=== PATIENT | female | born 1980 | race American Indian/Alaskan Native ===

== ENCOUNTER 2020-03-04 13:35 | Inpatient (IN) | payer MEDICAID ==
[2020-03-04] MEDS ORDERED: LACTATED RINGERS 500 ML IV ONE (14:17)
[2020-03-04 14:44] LABS: Bilirubin,Urine NEG (Negative); Blood,Urine NEG (Negative); Color,Urine Colorless (Yellow); Protein,Urine <15 mg/dL mg/dL (Negative); Urobilinogen,Urine < 2.0 mg/dL (<2.0)
[2020-03-04 14:54] LABS: Amphetamine Screen,Urine Negative; Benzodiazepines Screen,Urine Negative; Cannabinoid Screen,Urine Negative; Cocaine Screen,Urine Negative; Methadone Screen,Urine Negative; Opiate Screen,Urine Negative
[2020-03-04] MEDS ORDERED: MAGNESIUM SULFATE 4 GM/100 ML BAG IV ONE (14:59)
[2020-03-04 15:05] LABS: Hematocrit 38.5 % (30.3-42.9); Mean Corpuscular HGB Conc 34 % (30-34); Mean Corpuscular Volume 98 fl (79-97); Platelet Count 220 K/mm3 (140-440); Red Blood Count 3.94 M/mm3 (3.65-5.03); Red Cell Distribution Width 14.2 % (13.2-15.2)
--- NOTE | 2020-03-04 15:05 | History and Physical Report ---
History of Present Illness Date of examination: 03/04/20 Date of admission: 03/04/2020 Chief complaint: 39-year-old -0-2-5 at 25 and 5 by LMP with KEVIN 06/12/2020 presents for the following: Uncontrolled chronic hypertension in second trimester: Medication includes amlodipine 10 mg daily, labetalol 400 mg twice daily Chronic diastolic heart failure: Echo done in [place] [facility] January 10 within normal limits AMA Cigarette smoker Substance dependence And multiple HSV-2 History of UTI and right thigh boil Past History Past Medical History: heart disease, hypertension Past Surgical History: no surgical history - Obstetrical History Expected Date of Delivery: 06/12/20 Actual Gestation: 25 Week(s) 5 Day(s) : 8 Para: 5 Medications and Allergies Allergies Allergy/AdvReac Type Severity Reaction Status Date / Time No Known Allergies Allergy Unverified 03/04/20 14:17 Active Meds: Active Medications Betamethasone Acet/Betameth SodPhos (Celestone Soluspan) 12 mg IM Q24HR SANCHEZ Lactated Ringer's (Lactated Ringers) 1,000 mls @ 75 mls/hr IV DIRECT SANCHEZ Magnesium Sulfate (Magnesium Sulfate 40gm/1000ml) 40 gm in 1,000 mls @ 50 mls/hr IV DIRECT SANCHEZ Magnesium Sulfate (Magnesium Sulfate 4gm/100ml) 4 gm in 100 mls @ 300 mls/hr IV ONCE ONE Stop: 03/04/20 15:18 Labetalol HCl (Labetalol) 20 mg IV ONCE ONE Stop: 03/04/20 15:00 Review of Systems All systems: negative (no complaints) - Vital Signs Vital signs: Vital Signs Pulse BP 70 165/88 03/04/20 14:26 03/04/20 14:26 Temp Pulse Resp BP Pulse Ox 98.4 F 83 16 175/77 03/04/20 14:27 03/04/20 14:59 03/04/20 14:27 03/04/20 14:59 - Physical Exam Breasts: Positive: deferred Cardiovascular: Regular rate Lungs: Positive: Clear to auscultation Abdomen: Positive: normal appearance Extremities: Positive: normal Deep Tendon Reflex Grade: Normal +2 - Obstetrical FHR: category 1 Results All other labs normal. Assessment and Plan Severe uncontrolled chronic hypertension in the second trimester with history of chronic heart failure Plan Labetalol 20 mg IV x1 dose stat Admission [facility] consult Cardiology consult Magnesium sulfate Steroid PIH labs 24-hour urine protein Drug abuse profile OB ultrasound Patient will be placed on hold at home p.o. chronic hypertension medication Will follow ACOG algorithms and guidelines regarding malignant hypertension in stable at bedside Riccardo Costa MD
[2020-03-04 15:23] LABS: Alanine Aminotransferase 12 units/L (7-56); Uric Acid 4.8 mg/dL (3.5-7.6)
[2020-03-04] MEDS: LACTATED RINGERS 1,000 ML IV SCH (16:15)
[2020-03-04] MEDS: BETAMET ACET/BETAMET NA PH 6 MG/ML INJ 5 ML MDV IM SCH (16:16)
[2020-03-04] MEDS: MAGNESIUM SULFATE 40GM/1000ML 40 GM/1,000 ML BAG IV SCH (16:45)
[2020-03-04] MEDS ORDERED: ZOLPIDEM 5 MG TAB PO PRN (23:27)
[2020-03-04] MEDS: ACETAMINOPHEN 325 MG TAB PO PRN (23:53)
[2020-03-05] MEDS: LACTATED RINGERS 1,000 ML IV SCH ×2 (05:40→16:17)
[2020-03-05] MEDS: amLODIPine 10 MG TAB PO SCH (09:11)
--- NOTE | 2020-03-05 12:09 | Progress Note ---
Assessment and Plan A: at 25 weeks, 6 days gestation. Chronic hypertension, possible preE. Chronic diastolic heart failure. AMA. Cigarette smoker. P: Patient to be seen by perinatology and cardiology. Continue BP monitoring and meds. OB US (has been ordered). Continue 24 hour urine collection. Consulted with re: this patient. Orders per MD. Subjective - Subjective Date of service: 03/05/20 Principal diagnosis: at 25 6/7 weeks, chronic hypertension Interval history: Doing well. Has been resting and BPs are much better. Was sent here from the OB office and admitted yesterday due to uncontrolled chronic hypertension in the second trimester. Patient also has chronic diastolic heart failure. Patient denies headache, visual disturbance, nausea or vomiting, abdominal or epigastric pain, or swelling. Patient reports active movement. She denies leaking of fluid or vaginal bleeding. Awaiting visit from cardiology and perinatology (consults were ordered by Dr. Costa). Objective - Vital Signs Vital Signs: Vital Signs - 12hr 03/05/20 03/05/20 03/05/20 00:08 00:13 00:18 Temperature Pulse Rate 69 68 69 Respiratory Rate Blood Pressure Blood Pressure [Left] O2 Sat by Pulse 99 98 99 Oximetry 03/05/20 03/05/20 03/05/20 00:20 00:23 00:28 Temperature Pulse Rate 68 70 Respiratory 18 Rate Blood Pressure Blood Pressure [Left] O2 Sat by Pulse 99 98 98 Oximetry 03/05/20 03/05/20 03/05/20 00:33 00:36 00:38 Temperature Pulse Rate 69 68 72 Respiratory Rate Blood Pressure 133/70 Blood Pressure [Left] O2 Sat by Pulse 98 99 Oximetry 03/05/20 03/05/20 03/05/20 00:43 00:48 00:53 Temperature Pulse Rate 79 71 75 Respiratory Rate Blood Pressure Blood Pressure [Left] O2 Sat by Pulse 100 97 100 Oximetry 03/05/20 03/05/20 03/05/20 00:58 01:00 01:03 Temperature 98.8 F Pulse Rate 79 72 Respiratory Rate Blood Pressure Blood Pressure [Left] O2 Sat by Pulse 99 100 Oximetry 03/05/20 03/05/20 03/05/20 01:07 01:08 01:13 Temperature Pulse Rate 74 75 74 Respiratory Rate Blood Pressure 165/84 Blood Pressure [Left] O2 Sat by Pulse 100 100 Oximetry 03/05/20 03/05/20 03/05/20 01:18 01:23 01:28 Temperature Pulse Rate 76 75 69 Respiratory Rate Blood Pressure Blood Pressure [Left] O2 Sat by Pulse 100 100 100 Oximetry 03/05/20 03/05/20 03/05/20 01:30 01:33 01:36 Temperature Pulse Rate 68 68 Respiratory 20 Rate Blood Pressure 141/70 Blood Pressure [Left] O2 Sat by Pulse 99 100 Oximetry 03/05/20 03/05/20 03/05/20 01:38 01:43 01:48 Temperature Pulse Rate 69 72 73 Respiratory Rate Blood Pressure Blood Pressure [Left] O2 Sat by Pulse 100 100 99 Oximetry 03/05/20 03/05/20 03/05/20 01:53 01:58 02:03 Temperature Pulse Rate 70 72 69 Respiratory Rate Blood Pressure Blood Pressure [Left] O2 Sat by Pulse 98 99 100 Oximetry 03/05/20 03/05/20 03/05/20 02:08 02:13 02:18 Temperature Pulse Rate 67 68 71 Respiratory Rate Blood Pressure 128/68 Blood Pressure [Left] O2 Sat by Pulse 100 99 99 Oximetry 03/05/20 03/05/20 03/05/20 02:20 02:23 02:28 Temperature Pulse Rate 70 74 Respiratory 18 Rate Blood Pressure Blood Pressure [Left] O2 Sat by Pulse 100 98 100 Oximetry 03/05/20 03/05/20 03/05/20 02:33 02:36 02:38 Temperature Pulse Rate 76 72 72 Respiratory Rate Blood Pressure 112/54 Blood Pressure [Left] O2 Sat by Pulse 98 98 Oximetry 03/05/20 03/05/20 03/05/20 02:43 02:48 02:53 Temperature Pulse Rate 75 75 73 Respiratory Rate Blood Pressure Blood Pressure [Left] O2 Sat by Pulse 98 97 97 Oximetry 03/05/20 03/05/20 03/05/20 02:58 03:03 03:06 Temperature Pulse Rate 75 74 81 Respiratory Rate Blood Pressure 112/56 Blood Pressure [Left] O2 Sat by Pulse 97 97 Oximetry 03/05/20 03/05/20 03/05/20 03:08 03:13 03:18 Temperature Pulse Rate 75 77 78 Respiratory Rate Blood Pressure Blood Pressure [Left] O2 Sat by Pulse 97 97 97 Oximetry 03/05/20 03/05/20 03/05/20 03:23 03:28 03:33 Temperature Pulse Rate 78 77 77 Respiratory Rate Blood Pressure Blood Pressure [Left] O2 Sat by Pulse 97 97 97 Oximetry 03/05/20 03/05/20 03/05/20 03:35 03:36 03:38 Temperature Pulse Rate 75 77 Respiratory 18 Rate Blood Pressure 103/57 Blood Pressure [Left] O2 Sat by Pulse 99 97 Oximetry 03/05/20 03/05/20 03/05/20 03:43 03:48 03:53 Temperature Pulse Rate 75 75 76 Respiratory Rate Blood Pressure Blood Pressure [Left] O2 Sat by Pulse 98 97 97 Oximetry 03/05/20 03/05/20 03/05/20 03:58 04:03 04:06 Temperature Pulse Rate 77 75 74 Respiratory Rate Blood Pressure 111/59 Blood Pressure [Left] O2 Sat by Pulse 97 98 Oximetry 03/05/20 03/05/20 03/05/20 04:08 04:13 04:18 Temperature Pulse Rate 75 75 76 Respiratory Rate Blood Pressure Blood Pressure [Left] O2 Sat by Pulse 98 98 99 Oximetry 03/05/20 03/05/20 03/05/20 04:23 04:28 04:33 Temperature Pulse Rate 74 75 74 Respiratory Rate Blood Pressure Blood Pressure [Left] O2 Sat by Pulse 99 98 97 Oximetry 03/05/20 03/05/20 03/05/20 04:36 04:38 04:40 Temperature 97.8 F Pulse Rate 73 74 Respiratory Rate Blood Pressure 112/55 Blood Pressure [Left] O2 Sat by Pulse 98 Oximetry 03/05/20 03/05/20 03/05/20 04:43 04:48 04:53 Temperature Pulse Rate 73 74 75 Respiratory 20 Rate Blood Pressure Blood Pressure [Left] O2 Sat by Pulse 99 98 98 Oximetry 03/05/20 03/05/20 03/05/20 04:58 05:03 05:06 Temperature Pulse Rate 75 74 71 Respiratory Rate Blood Pressure 120/58 Blood Pressure [Left] O2 Sat by Pulse 98 100 Oximetry 03/05/20 03/05/20 03/05/20 05:08 05:13 05:18 Temperature Pulse Rate 77 75 78 Respiratory Rate Blood Pressure Blood Pressure [Left] O2 Sat by Pulse 99 99 98 Oximetry 03/05/20 03/05/20 03/05/20 05:23 05:28 05:30 Temperature Pulse Rate 75 79 Respiratory 18 Rate Blood Pressure Blood Pressure [Left] O2 Sat by Pulse 98 98 97 Oximetry 03/05/20 03/05/20 03/05/20 05:33 05:36 05:38 Temperature Pulse Rate 75 72 74 Respiratory Rate Blood Pressure 111/60 Blood Pressure [Left] O2 Sat by Pulse 98 97 Oximetry 03/05/20 03/05/20 03/05/20 05:43 05:48 05:53 Temperature Pulse Rate 77 75 76 Respiratory Rate Blood Pressure Blood Pressure [Left] O2 Sat by Pulse 97 98 97 Oximetry 03/05/20 03/05/20 03/05/20 05:58 06:03 06:06 Temperature Pulse Rate 77 76 75 Respiratory Rate Blood Pressure 113/55 Blood Pressure [Left] O2 Sat by Pulse 98 98 Oximetry 03/05/20 03/05/20 03/05/20 06:08 06:13 06:18 Temperature Pulse Rate 73 74 74 Respiratory Rate Blood Pressure Blood Pressure [Left] O2 Sat by Pulse 98 97 98 Oximetry 03/05/20 03/05/20 03/05/20 06:23 06:26 06:28 Temperature Pulse Rate 77 79 Respiratory 18 Rate Blood Pressure Blood Pressure [Left] O2 Sat by Pulse 97 97 98 Oximetry 03/05/20 03/05/20 03/05/20 06:33 06:36 06:38 Temperature Pulse Rate 76 75 80 Respiratory Rate Blood Pressure 110/66 Blood Pressure [Left] O2 Sat by Pulse 99 98 Oximetry 03/05/20 03/05/20 03/05/20 06:43 06:48 06:53 Temperature Pulse Rate 74 77 72 Respiratory Rate Blood Pressure Blood Pressure [Left] O2 Sat by Pulse 98 98 100 Oximetry 03/05/20 03/05/20 03/05/20 06:58 07:03 07:06 Temperature Pulse Rate 70 73 69 Respiratory Rate Blood Pressure 117/67 Blood Pressure [Left] O2 Sat by Pulse 99 99 Oximetry 03/05/20 03/05/20 03/05/20 07:08 07:13 07:18 Temperature Pulse Rate 72 71 71 Respiratory Rate Blood Pressure Blood Pressure [Left] O2 Sat by Pulse 100 99 98 Oximetry 03/05/20 03/05/20 03/05/20 07:23 07:28 07:33 Temperature Pulse Rate 72 72 69 Respiratory Rate Blood Pressure Blood Pressure [Left] O2 Sat by Pulse 98 98 99 Oximetry 03/05/20 03/05/20 03/05/20 07:36 07:38 07:39 Temperature 97.9 F Pulse Rate 70 70 71 Respiratory 16 Rate Blood Pressure 107/62 Blood Pressure 107/62 [Left] O2 Sat by Pulse 100 100 Oximetry 03/05/20 03/05/20 03/05/20 07:43 07:48 07:53 Temperature Pulse Rate 74 72 71 Respiratory Rate Blood Pressure Blood Pressure [Left] O2 Sat by Pulse 100 100 100 Oximetry 03/05/20 03/05/20 03/05/20 07:58 08:03 08:08 Temperature Pulse Rate 79 78 75 Respiratory Rate Blood Pressure 138/77 Blood Pressure [Left] O2 Sat by Pulse 99 99 100 Oximetry 03/05/20 03/05/20 03/05/20 08:13 08:17 08:18 Temperature Pulse Rate 82 78 78 Respiratory Rate Blood Pressure 142/75 Blood Pressure [Left] O2 Sat by Pulse 100 100 Oximetry 03/05/20 03/05/20 03/05/20 08:23 08:28 08:33 Temperature Pulse Rate 79 81 81 Respiratory Rate Blood Pressure Blood Pressure [Left] O2 Sat by Pulse 100 100 99 Oximetry 03/05/20 03/05/20 03/05/20 08:38 08:43 08:48 Temperature Pulse Rate 77 87 79 Respiratory Rate Blood Pressure Blood Pressure [Left] O2 Sat by Pulse 100 100 100 Oximetry 03/05/20 03/05/20 03/05/20 08:53 08:57 08:58 Temperature Pulse Rate 82 80 85 Respiratory Rate Blood Pressure 134/76 Blood Pressure [Left] O2 Sat by Pulse 100 100 Oximetry 03/05/20 03/05/20 03/05/20 09:03 09:08 09:11 Temperature Pulse Rate 81 81 78 Respiratory Rate Blood Pressure 134/76 Blood Pressure [Left] O2 Sat by Pulse 100 100 Oximetry 03/05/20 03/05/20 03/05/20 09:13 09:17 09:18 Temperature Pulse Rate 80 81 83 Respiratory Rate Blood Pressure 142/63 Blood Pressure [Left] O2 Sat by Pulse 100 100 Oximetry 03/05/20 03/05/20 03/05/20 09:23 09:28 09:34 Temperature Pulse Rate 78 80 80 Respiratory Rate Blood Pressure Blood Pressure [Left] O2 Sat by Pulse 100 100 100 Oximetry 03/05/20 03/05/20 03/05/20 09:38 09:44 09:49 Temperature Pulse Rate 78 78 80 Respiratory Rate Blood Pressure Blood Pressure [Left] O2 Sat by Pulse 100 99 100 Oximetry 03/05/20 03/05/20 03/05/20 09:54 09:59 10:03 Temperature Pulse Rate 77 77 77 Respiratory Rate Blood Pressure Blood Pressure [Left] O2 Sat by Pulse 99 99 99 Oximetry 03/05/20 03/05/20 03/05/20 10:08 10:14 10:19 Temperature Pulse Rate 78 80 76 Respiratory Rate Blood Pressure Blood Pressure [Left] O2 Sat by Pulse 98 99 100 Oximetry 03/05/20 03/05/20 03/05/20 10:21 10:24 10:29 Temperature Pulse Rate 75 76 77 Respiratory Rate Blood Pressure 143/81 Blood Pressure [Left] O2 Sat by Pulse 100 100 Oximetry 03/05/20 03/05/20 03/05/20 10:33 10:39 10:43 Temperature Pulse Rate 78 78 77 Respiratory Rate Blood Pressure Blood Pressure [Left] O2 Sat by Pulse 100 100 100 Oximetry 03/05/20 03/05/20 03/05/20 10:49 10:53 10:59 Temperature Pulse Rate 75 76 75 Respiratory Rate Blood Pressure Blood Pressure [Left] O2 Sat by Pulse 100 100 100 Oximetry 03/05/20 03/05/20 03/05/20 11:01 11:04 11:08 Temperature Pulse Rate 75 76 79 Respiratory Rate Blood Pressure 141/74 Blood Pressure [Left] O2 Sat by Pulse 100 100 Oximetry 03/05/20 03/05/20 03/05/20 11:11 11:13 11:18 Temperature 98.2 F Pulse Rate 74 73 75 Respiratory 18 Rate Blood Pressure Blood Pressure [Left] O2 Sat by Pulse 100 100 100 Oximetry 03/05/20 03/05/20 03/05/20 11:23 11:29 11:34 Temperature Pulse Rate 81 77 81 Respiratory Rate Blood Pressure Blood Pressure [Left] O2 Sat by Pulse 99 98 100 Oximetry 03/05/20 03/05/20 03/05/20 11:38 11:43 11:48 Temperature Pulse Rate 74 74 77 Respiratory Rate Blood Pressure Blood Pressure [Left] O2 Sat by Pulse 100 99 99 Oximetry 03/05/20 03/05/20 03/05/20 11:54 11:56 11:59 Temperature Pulse Rate 75 72 71 Respiratory Rate Blood Pressure 125/70 Blood Pressure [Left] O2 Sat by Pulse 100 100 Oximetry 03/05/20 12:04 Temperature Pulse Rate 76 Respiratory Rate Blood Pressure Blood Pressure [Left] O2 Sat by Pulse 100 Oximetry - Exam Cardiovascular: Regular rate, Other (murmur heard) Lungs: Clear to auscultation Abdomen: Present: normal appearance, soft. Absent: distention, tenderness, guarding, rigidity Uterus: Present: normal, fundal height above umbilicus. Absent: tenderness FHR: other (AGA) Uterine Contraction Pattern: Absent Extremities: normal - Labs Labs: Abnormal Labs 03/04/20 03/04/20 03/05/20 13:54 13:54 08:35 MCV 98 H MCH 33 H Creatinine 0.5 L Magnesium 6.20 H Laboratory Results - last 24 hr 03/04/20 03/04/20 03/04/20 13:54 13:54 14:15 WBC 9.0 RBC 3.94 Hgb 13.0 Hct 38.5 MCV 98 H MCH 33 H MCHC 34 RDW 14.2 Plt Count 220 Creatinine 0.5 L Estimated GFR > 60 Uric Acid 4.8 Magnesium AST 32 ALT 12 Urine Color Colorless Urine Turbidity Clear Urine pH 7.0 Ur Specific [place] 1.004 Urine Protein <15 mg/dl Urine Glucose (UA) Neg Urine Ketones Neg Urine Blood Neg Urine Nitrite Neg Urine Bilirubin Neg Urine Urobilinogen < 2.0 Ur Leukocyte Esterase Neg Urine WBC (Auto) 2.0 Urine RBC (Auto) 1.0 U Epithel Cells (Auto) < 1.0 Urine Opiates Screen Urine Methadone Screen Ur Barbiturates Screen Ur Phencyclidine Scrn Ur Amphetamines Screen U Benzodiazepines Scrn Urine Cocaine Screen U Marijuana (THC) Screen Drugs of Abuse Note Blood Type Antibody Screen 03/04/20 03/04/20 03/05/20 14:15 14:15 08:35 WBC RBC Hgb Hct MCV MCH MCHC RDW Plt Count Creatinine Estimated GFR Uric Acid Magnesium 6.20 H AST ALT Urine Color Urine Turbidity Urine pH Ur Specific [place] Urine Protein Urine Glucose (UA) Urine Ketones Urine Blood Urine Nitrite Urine Bilirubin Urine Urobilinogen Ur Leukocyte Esterase Urine WBC (Auto) Urine RBC (Auto) U Epithel Cells (Auto) Urine Opiates Screen Negative Urine Methadone Screen Negative Ur Barbiturates Screen Negative Ur Phencyclidine Scrn Negative Ur Amphetamines Screen Negative U Benzodiazepines Scrn Negative Urine Cocaine Screen Negative U Marijuana (THC) Screen Negative Drugs of Abuse Note Disclamer Blood Type O POSITIVE Antibody Screen Negative
[2020-03-05] MEDS: PRENATAL VIT27-FE FUMARATE-FOLIC ACID VIT TAB PO SCH (13:52)
[2020-03-05] MEDS: MAGNESIUM SULFATE 40GM/1000ML 40 GM/1,000 ML BAG IV SCH (13:52)
[2020-03-05] MEDS: BETAMET ACET/BETAMET NA PH 6 MG/ML INJ 5 ML MDV IM SCH (16:08)
--- NOTE | 2020-03-05 17:57 | Event Note ---
Date: 03/05/20 [facility] and cardiology consult ordered yesterday; pt. states neither has seen her yet. Called [facility] and cardiology and made sure they were aware of these consults.
--- NOTE | 2020-03-05 19:57 | Ultrasound Report ---
US OB limited, US OB BPP wo non-stress INDICATION: MICHELLE. TECHNIQUE: Transabdominal. Color Doppler was performed. COMPARISON: None available. FINDINGS: There is a single intrauterine . Heart Rate: 129 beats per minute. Position: cephalic. Amniotic Fluid Volume: normal Amniotic Fluid Index (MICHELLE) in cm (if calculated): 9.9. Biophysical Profile: breathing movements: 2 movements:2 posture and tone:2 Qualitative amniotic fluid volume: 2 IMPRESSION: 1. Amniotic fluid is normal. 2. Biophysical profile is 8 of 8 Signer Name: Rod Norris MD Signed: 03/05/2020 7:53 PM Workstation Name: [id number]
--- NOTE | 2020-03-05 20:14 | Event Note ---
Date: 03/05/[address] Padilla from [facility] re: consult that had been put in by Dr. Cosat yesterday. Dr. Padilla reviewed patient's chart on [facility]. Dr. Padilla states that patient has chronic hypertension with superimposed preeclampsia with severe features. He recommends to stop magnesium sulfate, make sure she has completed her course of steroids, keep her in-house, continue her BP medications, and that [facility] will see her either tomorrow or Saturday. Informed Dr. Monreal of all of the above. Also called [facility] and reminded them of cardiology consult that had been put in by Dr. Costa. 24 hour urine protein now resulted: 444 mg protein. US done this PM: BPP 8/8 and MICHELLE 9.9 cm. Nurse states patient received her second dose of steroids this afternoon.
[2020-03-06] MEDS: ACETAMINOPHEN 325 MG TAB PO PRN (03:05)
--- NOTE | 2020-03-06 08:46 | Consultation ---
History of Present Illness Consult date: 03/06/20 History of present illness: Ms. López is a 39y/o 26+0 weeks GA who is admitted with chronic hypertension and now a 24hour urine 444mg. The patient was admitted with new onset severe range blood pressures from her OBGYN's office with blood pressures in 210s/100s. She has been provided with IV anti-hypertensives while in the hospital in re-initiated on her oral medications of labetalol 400mg BID and Amlodipine 10mg daily. Currently, she denies headaches, visual changes and ruq pain. She denies headaches, visual changes and ruq pain. Of note, on review of the available records, the patient has a history of chronic diastolic heart failure with a recent TTE performed in 12/2019. But there is no record of the report available to [facility] at this time. The patient has already received betamethasone for lung maturity and magnesium sulfate for neuroprotection. Past History Past Medical History: heart disease, hypertension Past Surgical History: no surgical history - Obstetrical History : 8 Medications and Allergies Allergies Allergy/AdvReac Type Severity Reaction Status Date / Time latex Allergy Itching Verified 03/04/20 15:17 sulfur [From Sulfur-8] Allergy Itching Verified 03/04/20 15:17 Home Medications Medication Instructions Recorded Confirmed Last Taken Type Vitamin 1 tab PO DAILY 03/05/20 03/05/20 03/03/20 History amLODIPine 10 mg PO DAILY 03/05/20 03/05/20 03/04/20 History labetaloL 400 mg PO BID 03/05/20 03/05/20 03/03/20 History Active Meds: Active Medications Acetaminophen (Tylenol) 650 mg PO Q6H PRN PRN Reason: Pain, Mild (1-3) Last Admin: 03/06/20 03:05 Dose: 650 mg Documented by: Amlodipine Besylate (Amlodipine) 10 mg PO QDAY [facility] Last Admin: 03/05/20 09:11 Dose: 10 mg Documented by: Lactated Ringer's (Lactated Ringers) 1,000 mls @ 75 mls/hr IV DIRECT [facility] Last Admin: 03/05/20 16:17 Dose: 75 mls/hr Documented by: Labetalol HCl (Labetalol) 400 mg PO BID [facility] Last Admin: 03/05/20 21:38 Dose: 400 mg Documented by: Multivitamins/Iron/Calcium ( Vitamin) 1 each PO QDAY [facility] Last Admin: 03/05/20 13:52 Dose: 1 each Documented by: Zolpidem Tartrate (Ambien) 5 mg PO QHS PRN PRN Reason: Sleep Last Admin: 03/04/20 23:53 Dose: 5 mg Documented by: Review of Systems All systems: negative - Vital Signs Vital signs: Vital Signs Pulse BP 70 165/88 03/04/20 14:26 03/04/20 14:26 Temp Pulse Resp BP Pulse Ox 98.7 F 76 18 126/60 100 03/06/20 08:12 03/06/20 08:12 03/06/20 03:05 03/06/20 07:59 03/05/20 23:04 Most recent blood pressures are now in normal to mild range as noted in the electronic medical record. - Physical Exam Abdomen: Positive: normal appearance, soft, other (No ruq/epigastric tenderness.) Deep Tendon Reflex Grade: Dull/Diminished +1 - Obstetrical FHR: category 1 Uterine Contraction Monitor Mode: External (Flat) Uterine Contraction Pattern: Absent Results Result Diagrams: 03/04/20 13:54 03/04/20 13:54 Abnormal lab results 03/04/20 03/05/20 03/05/20 Range/Units 18:00 08:35 18:31 Magnesium 6.20 H 5.70 H (1.7-2.3) mg/dL Ur Total Protein 24 Hr 444.00 H (2-200) mg/dL All other labs normal. Ultrasound: pending, report reviewed, image reviewed, other Assessment and Plan IMPRESSIONS: IUP at 26+0 weeks gestation Chronic hypertension with superimposed preeclampsia with severe features by blood pressure criteria Managed on labetalol 400mg BID and Amlodipine 10mg daily Advanced maternal age s/p BMZ on 03/04-02/23 s/p magnesium sulfate for neuroprotection Chronic diastolic heart failure, likely from long standing uncontrolled chronic hypertension. RECOMMENDATIONS: 1. Chronic hypertension with superimposed preeclampsia with severe features I have reviewed the pathophysiology of superimposed preeclampsia with severe features with the patient and its obstetrical implications. I have discussed that the risks of such disease process in as the risk for growth restriction, intrauterine demise, maternal morbidity and maternal mortality. I have reviewed the criteria as outlined in ACOG Practice Bulletin #222. Going forward, I do recommend the following: -Inpatient hospitalization is recommended with expectant mangement for the durat ion of until delivery at 34 weeks. The patient expressed that she has lots of stressors going on in her life and may want to be managed as an outpatient. I reviewed that this is not my medical recommendation as the patient, if she requires urgent/emergent intervention for her blood pressure or need for delivery, this cannot be accomplished if she is at home. However, she will further discuss this with her OBGYN. -Weekly CBC, CMP while in house -Please obtain a Neonatology consultation -Obtain growth ultrasound and perform serial growth ultrasound every 3-4 weeks -DO NOT perform gestational diabetes screening until 7-10 after the completion of the initial betamethasone course -Daily NSTs -Weekly BPPs starting at 28 weeks -Bedrest is CONTRAINDICATED, as it only increases the risk of muscle wastage and venous thrombotic events. -Continue the patient's current anti-hypertensive regimen. Contraindications to expectant management, in which delivery would be warranted prior to 34 weeks, include the following: -LFTs greater than 2x the upper limit of normal -Creatinine > 1.1mg /dL -Platelet count less than 100 x 10^9/L -Eclampsia -Pulmonary edema -Unrelenting right upper quadrant pain -Cerebrovascular disturbances -Need for multiple pushes of IV anti-hypertensive medications -Need to quickly increase the patient's oral anti-hypertensive regimen -Non-reassuring status 2. Chronic diastolic heart failure -Obtain the patient's most recent TTE. -Would consult Adult Cardiology as patient needs cardiology follow up in the 2nd trimester. Thank you for the consultation. Medhat Padilla MD FACOG [facility] [place]
--- NOTE | 2020-03-06 10:21 | Progress Note ---
Assessment and Plan A: at 26 weeks gestation. Chronic hypertension with superimposed preeclampsia with severe features. S/P BMZ for FLM and mag sulfate for neuroprotection. AMA. Chronic diastolic heart failure. P: Cardiology to see patient (consult has been ordered and cardiology has been notified). Neonatology consult. Daily NST. Weekly BPP beginning at 28 weeks. US for growth; serial growth US every 3-4 weeks. Continue current oral antihypertensive regimen. Weekly CBC, CMP. Patient seen in consultation and collaboration with . Subjective - Subjective Date of service: 03/06/20 Principal diagnosis: at 26 weeks, chronic hypertension, superimposed PreE Interval history: 39 year old at 26 weeks gestation with chronic hypertension and superimposed preeclampsia with severe features. S/P Celestone for FLM and magnesium sulfate for neuroprotection. BPs controlled on Labetalol 400 mg po BID and Amlodipine 10 mg po QD. 24 hour urine total protein 444 mg. History of chronic diastolic heart failure; consult with cardiology pending. Was seen by perinatology this morning who recommended continued inpatient hospitalization until delivery at 34 weeks gestation, weekly CBC and CMP, noel natology consult, serial growth US every 3-4 weeks, daily NSTs, and weekly BPPs starting at 28 weeks gestation. Patient denies headache, visual disturbance, nausea or vomiting, abdominal or epigastric pain, or swelling. Patient reports: movement normal, no new complaints, no loss of fluid, no vaginal bleeding, no contractions Objective - Vital Signs Vital Signs: Vital Signs - 12hr 03/05/20 03/05/20 03/05/20 22:24 22:29 22:34 Temperature Pulse Rate 77 81 79 Respiratory Rate Blood Pressure O2 Sat by Pulse 100 100 100 Oximetry 03/05/20 03/05/20 03/05/20 22:39 22:44 22:49 Temperature Pulse Rate 84 78 79 Respiratory Rate Blood Pressure O2 Sat by Pulse 100 100 100 Oximetry 03/05/20 03/05/20 03/05/20 22:54 22:59 23:01 Temperature Pulse Rate 79 81 77 Respiratory Rate Blood Pressure 149/71 O2 Sat by Pulse 100 100 Oximetry 03/05/20 03/06/20 03/06/20 23:04 00:37 00:59 Temperature Pulse Rate 80 75 75 Respiratory Rate Blood Pressure 148/77 139/76 O2 Sat by Pulse 100 Oximetry 03/06/20 03/06/20 03/06/20 01:59 02:59 03:05 Temperature Pulse Rate 66 75 Respiratory 18 Rate Blood Pressure 126/64 145/77 O2 Sat by Pulse Oximetry 03/06/20 03/06/20 03/06/20 03:59 05:00 05:59 Temperature Pulse Rate 83 87 88 Respiratory Rate Blood Pressure 142/81 153/74 117/56 O2 Sat by Pulse Oximetry 03/06/20 03/06/20 03/06/20 07:00 07:59 08:12 Temperature 98.7 F Pulse Rate 76 76 76 Respiratory Rate Blood Pressure 147/65 126/60 O2 Sat by Pulse Oximetry 03/06/20 09:00 Temperature Pulse Rate 75 Respiratory Rate Blood Pressure 161/72 O2 Sat by Pulse Oximetry - Exam Cardiovascular: Regular rate, Other (murmur heard) Lungs: Clear to auscultation Abdomen: Present: normal appearance, soft. Absent: distention, tenderness, guarding, rigidity Uterus: Present: normal, fundal height above umbilicus. Absent: tenderness Uterine Contraction Pattern: Absent - Labs Labs: Abnormal Labs 03/04/20 03/04/20 03/04/20 13:54 13:54 18:00 MCV 98 H MCH 33 H Creatinine 0.5 L Magnesium Ur Total Protein 24 Hr 444.00 H 03/05/20 03/05/20 08:35 18:31 MCV MCH Creatinine Magnesium 6.20 H 5.70 H Ur Total Protein 24 Hr Laboratory Results - last 24 hr 03/04/20 03/05/20 18:00 18:31 Magnesium 5.70 H Urine Total Volume 7400 Ur Total Protein 24 Hr 444.00 H Urine Total Protein 6
[2020-03-06] MEDS: PRENATAL VIT27-FE FUMARATE-FOLIC ACID VIT TAB PO SCH (10:29)
[2020-03-06] MEDS: amLODIPine 10 MG TAB PO SCH (10:29)
--- NOTE | 2020-03-06 21:26 | Consultation ---
Consult Note - Parent Education I met with parent(s) and discussed the following:: Need for NICU admission, Poss ible need for intubation and surfactant or other resp support, Temperature regulation, Head ultrasounds to evaluate IVH, Eye exams for ROP screening, Possible need for IV fluids/TPN and IV antibiotics, Possible need for umbilical lines, Importance of providing breast milk & encouraged pumping aft delivery, Donor breast milk if baby meets criteria after , Slow feeding advancement and monitoring of tolerance. NG/OG feeds, Need to monitor for jaundice, Data for survival & survival without significant co-morbidities Parent(s) demonstrated understanding of all the information:: Yes Assessment and Plan - Assessment Gestation:: 26 Baby's gender: Female Baby's name: Angelito Additional Comment: Ms. López is a 39 yo who was admitted aqt 25 5/7 weeks gestation, now 26 weeks gestation, for management of her chronic hypertension. Her medications include Amlodipine and labetalol. Her history is signficant for uncontrolled chronic hypertension with superimposed pre-ecclampsia with severe features, diastolic heart failure, cigarette smoking, and AMA. Substance dependence was noted in H/P, but maternal UDS is negative on admssion. Mother admits to smoking THC at times but denied use of any other illicit drugs. All Ms. López's 5 other children were delivered at term vaginally. - Plan Plan: Agree with Mag & steroids Will attend delivery Please call NICU with questions
--- NOTE | 2020-03-06 21:49 | Ultrasound Report ---
ULTRASOUND OBSTETRIC INDICATION / CLINICAL INFORMATION: growth. Clinical Gestational Age (GA): 26 weeks 0.days TECHNIQUE: Transabdominal. COMPARISON: 03/05/2020 FINDINGS: There is a single intrauterine . Biparietal Diameter = 6.0 cm = 24 weeks 4.days Head Circumference = 24 cm = 26 weeks 0.days Abdominal Circumference = 22 cm = 26 weeks. 2 days Femur Length = 4.8 cm = 26 weeks 0.days Average Ultrasound Age (AUA) = 25 weeks 5.days Heart Rate: 140 beats per minute. Estimated Weight in grams (if calculated): 887 growth is 41%. Position: breech. Cervix: closed. Placenta: Placenta previa with the placenta overlying the cervical os is at least partial. Maternal Adnexa: No significant abnormality. IMPRESSION: 1. Single, living intrauterine with estimated sonographic age of 25 weeks. 5 days 2. At least partial placenta previa is suspected. Further further attention to this is recommended in follow-up evaluations. Signer Name: Yinka [place] MD Signed: 03/06/2020 9:44 PM Workstation Name: [id number]
[2020-03-07] MEDS: amLODIPine 10 MG TAB PO SCH (12:12)
[2020-03-07] MEDS: PRENATAL VIT27-FE FUMARATE-FOLIC ACID VIT TAB PO SCH (12:12)
--- NOTE | 2020-03-07 12:36 | Consultation ---
History of Present Illness Consult date: 03/07/20 Consult reason: congestive heart failure History of present illness: This is a 39-year whom is 26 weeks gestation, admitted 3 days ago with uncon trolled hypertension. Patient is known to [facility] and is followed by Dr Sadler. She has a history of chronic hypertension, on Amlodipine 10 mg daily and Labetalol 400 mg twice a day. A recent echocardiogram showed a normal left ventricular systolic function, ejection fraction 55-60%. Since admission, her blood pressure has improved, currently 135/80. She denies chest pain, denies unusual shortness of breath, and denies dizziness. 12 lead ECG is pending for cardiac review. Medications and Allergies Allergies Allergy/AdvReac Type Severity Reaction Status Date / Time latex Allergy Itching Verified 03/04/20 15:17 sulfur [From Sulfur-8] Allergy Itching Verified 03/04/20 15:17 Home Medications Medication Instructions Recorded Confirmed Last Taken Type Vitamin 1 tab PO DAILY 03/05/20 03/05/20 03/03/20 History amLODIPine 10 mg PO DAILY 03/05/20 03/05/20 03/04/20 History labetaloL 400 mg PO BID 03/05/20 03/05/20 03/03/20 History Active Meds: Active Medications Acetaminophen (Tylenol) 650 mg PO Q6H PRN PRN Reason: Pain, Mild (1-3) Last Admin: 03/06/20 03:05 Dose: 650 mg Documented by: Amlodipine Besylate (Amlodipine) 10 mg PO QDAY [facility] Last Admin: 03/07/20 12:12 Dose: 10 mg Documented by: Lactated Ringer's (Lactated Ringers) 1,000 mls @ 75 mls/hr IV DIRECT [facility] Last Admin: 03/05/20 16:17 Dose: 75 mls/hr Documented by: Labetalol HCl (Labetalol) 400 mg PO Q8HR [facility] Last Admin: 03/07/20 09:46 Dose: 400 mg Documented by: Multivitamins/Iron/Calcium ( Vitamin) 1 each PO QDAY [facility] Last Admin: 03/07/20 12:12 Dose: 1 each Documented by: Zolpidem Tartrate (Ambien) 5 mg PO QHS PRN PRN Reason: Sleep Last Admin: 03/04/20 23:53 Dose: 5 mg Documented by: Physical Examination Vital Signs Pulse BP 70 165/88 03/04/20 14:26 03/04/20 14:26 General appearance: no acute distress HEENT: Positive: PERRL Neck: Positive: trachea midline Cardiac: Positive: Reg Rate and Rhythm Results 03/04/20 13:54 03/04/20 13:54 Assessment and Plan Chronic hypertension 26 weeks gestation 12/2019 Echo: normal LVEF 55-60%. 12 lead ECG pending for cardiac review.
[2020-03-07 16:28] LABS: Basophils # (Auto) 0.1 K/mm3 (0.0-0.1); Basophils % (Auto) 0.4 % (0.0-1.8); Eosinophils % (Auto) 0.2 % (0.0-4.3); Hematocrit 37.6 % (30.3-42.9); Hemoglobin 12.5 gm/dl (10.1-14.3); Lymphocytes # (Auto) 1.7 K/mm3 (1.2-5.4); Lymphocytes % (Auto) 11.6 % (13.4-35.0); Mean Corpuscular HGB Conc 33 % (30-34); Mean Corpuscular Volume 98 fl (79-97); Monocytes # (Auto) 1.1 K/mm3 (0.0-0.8); Monocytes % (Auto) 7.4 % (0.0-7.3); Platelet Count 219 K/mm3 (140-440); Red Blood Count 3.85 M/mm3 (3.65-5.03)
[2020-03-07 16:48] LABS: Alanine Aminotransferase 9 units/L (7-56); Albumin 3.6 g/dL (3.9-5); Blood Urea Nitrogen 11 mg/dL (7-17); Calcium 9.4 mg/dL (8.4-10.2); Hemolysis Index 29
[2020-03-07 16:52] LABS: BUN/Creatinine Ratio 18
[2020-03-07] MEDS: NIFEdipine XL 60 MG TAB PO SCH (17:25)
--- NOTE | 2020-03-07 17:54 | Progress Note ---
Assessment and Plan - Patient Problems (1) Pre-eclampsia added to pre-existing hypertension Current Visit: Yes Status: Acute Plan to address problem: Patient with know CHTN now with preeclampsia TP 444. Persistently elevated BPs, still >160s. Per cardiology, changed amlodipine 10mg to procardia 60mg XL. Will monitor BPs closely. Trends labs. S/p BMZ x 2 for lung maturity. No magnesium sulfate for neuroprotection. ?reported diagnostic heart failure however not EF. --Monitor for s/sx for severe preE --Continue labetalol 400mg q8hrs, d/c amlodipine 10mg, start procardia 60mg XL qday --Daily NST --Weekly BPPs starting at 28 weeks --US for growth; serial growth US every 3-4 weeks Subjective - Subjective Principal diagnosis: at 26 weeks, chronic hypertension, superimposed PreE Interval history: Patient doing well. Understanding plan of care. Denies PIH symptoms including RUQ pain, QUINTANILLA, scotoma. BPs still elevated. +FM. No labor complaints. Patient reports: movement normal, no new complaints, no loss of fluid, no vaginal bleeding, no contractions Objective - Vital Signs Vital Signs: Vital Signs - 12hr 03/07/20 03/07/20 03/07/20 06:00 06:19 06:49 Temperature 98.2 F Pulse Rate 82 65 Respiratory 18 Rate Blood Pressure 126/89 180/84 Blood Pressure [Left] 03/07/20 03/07/20 03/07/20 06:59 07:19 07:47 Temperature 99.2 F Pulse Rate 69 62 62 Respiratory 18 Rate Blood Pressure 168/86 179/87 Blood Pressure 198/87 [Left] 03/07/20 03/07/20 03/07/20 07:48 08:05 08:20 Temperature Pulse Rate 67 59 L 59 L Respiratory Rate Blood Pressure 198/87 186/84 168/78 Blood Pressure [Left] 03/07/20 03/07/20 03/07/20 08:35 08:50 09:05 Temperature Pulse Rate 64 71 60 Respiratory Rate Blood Pressure 166/68 150/70 156/80 Blood Pressure [Left] 03/07/20 03/07/20 03/07/20 09:20 09:35 09:46 Temperature Pulse Rate 72 70 70 Respiratory Rate Blood Pressure 176/80 167/67 167/67 Blood Pressure [Left] 03/07/20 03/07/20 03/07/20 09:50 10:05 11:11 Temperature Pulse Rate 67 65 70 Respiratory Rate Blood Pressure 155/72 158/80 138/87 Blood Pressure [Left] 03/07/20 03/07/20 03/07/20 11:41 12:08 12:10 Temperature 98.9 F Pulse Rate 62 64 64 Respiratory 18 Rate Blood Pressure 152/75 133/71 Blood Pressure 133/71 [Left] 03/07/20 03/07/20 03/07/20 12:11 12:12 12:41 Temperature Pulse Rate 68 68 72 Respiratory Rate Blood Pressure 135/80 135/80 167/80 Blood Pressure [Left] 03/07/20 03/07/20 03/07/20 13:11 13:41 14:11 Temperature Pulse Rate 65 71 68 Respiratory Rate Blood Pressure 177/82 131/65 121/59 Blood Pressure [Left] 03/07/20 03/07/20 03/07/20 14:41 15:09 15:11 Temperature Pulse Rate 71 71 78 Respiratory Rate Blood Pressure 137/67 137/67 176/81 Blood Pressure [Left] 03/07/20 03/07/20 03/07/20 15:41 16:11 16:41 Temperature Pulse Rate 73 74 75 Respiratory Rate Blood Pressure 174/80 168/80 164/79 Blood Pressure [Left] 03/07/20 03/07/20 03/07/20 16:50 17:11 17:41 Temperature 98.7 F Pulse Rate 75 75 78 Respiratory 18 Rate Blood Pressure 166/77 161/84 Blood Pressure 164/79 [Left] - Exam Abdomen: Present: normal appearance, normal bowel sounds - Labs Labs: Abnormal Labs 03/04/20 03/04/20 03/04/20 13:54 13:54 18:00 WBC MCV 98 H MCH 33 H Lymph % (Auto) [place] % (Auto) [place] # (Auto) Seg Neutrophils % Seg Neutrophils # Sodium Carbon Dioxide Creatinine 0.5 L Magnesium Albumin Ur Total Protein 24 Hr 444.00 H 03/05/20 03/05/20 03/07/20 08:35 18:31 16:13 WBC 14.8 H MCV 98 H MCH 33 H Lymph % (Auto) 11.6 L [place] % (Auto) 7.4 H [place] # (Auto) 1.1 H Seg Neutrophils % 80.4 H Seg Neutrophils # 11.9 H Sodium Carbon Dioxide Creatinine Magnesium 6.20 H 5.70 H Albumin Ur Total Protein 24 Hr 03/07/20 16:13 WBC MCV MCH Lymph % (Auto) [place] % (Auto) [place] # (Auto) Seg Neutrophils % Seg Neutrophils # Sodium 135 L Carbon Dioxide 18 L Creatinine Magnesium Albumin 3.6 L Ur Total Protein 24 Hr Laboratory Results - last 24 hr 03/05/20 03/07/20 03/07/20 12:41 16:13 16:13 WBC 14.8 H RBC 3.85 Hgb 12.5 Hct 37.6 MCV 98 H MCH 33 H MCHC 33 RDW 14.0 Plt Count 219 Lymph % (Auto) 11.6 L [place] % (Auto) 7.4 H Eos % (Auto) 0.2 Baso % (Auto) 0.4 Lymph # (Auto) 1.7 [place] # (Auto) 1.1 H Eos # (Auto) 0.0 Baso # (Auto) 0.1 Seg Neutrophils % 80.4 H Seg Neutrophils # 11.9 H Sodium 135 L Potassium 4.0 Chloride 103.3 Carbon Dioxide 18 L Anion Gap 18 BUN 11 Creatinine 0.6 Estimated GFR > 60 BUN/Creatinine Ratio 18 Glucose 90 Calcium 9.4 Total Bilirubin 0.20 AST 13 ALT 9 Alkaline Phosphatase 81 Total Protein 7.2 Albumin 3.6 L Albumin/Globulin Ratio 1.0 Coronavirus (PCR) Negative
--- NOTE | 2020-03-08 10:05 | Progress Note ---
Assessment and Plan - Patient Problems (1) Pre-eclampsia added to pre-existing hypertension Current Visit: Yes Status: Acute Plan to address problem: Patient with know CHTN now with preeclampsia TP 444. Persistently elevated BPs, still >160s. Per cardiology, changed amlodipine 10mg to procardia 60mg XL on 03/07/2020. Will monitor BPs closely. Trends labs. S/p BMZ x 2 for lung maturity. S/p magnesium sulfate for neuroprotection. ?reported diagnostic heart failure however normal EF. --Monitor for s/sx for severe preE --Continue labetalol 400mg q8hrs, procardia 60mg XL qday --Daily NST --Weekly BPPs starting at 28 weeks --US for growth; serial growth US every 3-4 weeks Subjective - Subjective Date of service: 03/08/20 Principal diagnosis: at 26 weeks, chronic hypertension, superimposed PreE Interval history: Patient doing well. Understanding plan of care. Denies PIH symptoms including RUQ pain, QUINTANILLA, scotoma. BPs still elevated. +FM. No labor complaints. Patient reports: movement normal, no new complaints, no loss of fluid, no vaginal bleeding, no contractions Objective - Vital Signs Vital Signs: Vital Signs - 12hr 03/07/20 03/07/20 03/08/20 22:39 23:39 01:27 Temperature Pulse Rate 71 87 77 Respiratory Rate Blood Pressure 136/69 126/61 133/73 Blood Pressure [Left] 03/08/20 03/08/20 03/08/20 01:38 02:38 03:39 Temperature Pulse Rate 79 87 80 Respiratory Rate Blood Pressure 136/73 135/73 172/80 Blood Pressure [Left] 03/08/20 03/08/20 03/08/20 03:44 04:39 05:39 Temperature Pulse Rate 77 75 88 Respiratory Rate Blood Pressure 158/80 112/59 128/65 Blood Pressure [Left] 03/08/20 03/08/20 03/08/20 06:39 07:39 08:22 Temperature 98.3 F Pulse Rate 83 69 67 Respiratory 16 Rate Blood Pressure 127/68 142/68 Blood Pressure 134/84 [Left] 03/08/20 03/08/20 03/08/20 08:23 08:38 09:39 Temperature Pulse Rate 67 65 80 Respiratory Rate Blood Pressure 134/84 144/86 146/77 Blood Pressure [Left] - Exam Abdomen: Present: normal appearance, normal bowel sounds FHR: category 1 Uterine Contraction Monitor Mode: External Extremities: normal - Labs Labs: Abnormal Labs 03/04/20 03/04/20 03/04/20 13:54 13:54 18:00 WBC MCV 98 H MCH 33 H Lymph % (Auto) [place] % (Auto) [place] # (Auto) Seg Neutrophils % Seg Neutrophils # Sodium Carbon Dioxide Creatinine 0.5 L Magnesium Albumin Ur Total Protein 24 Hr 444.00 H 03/05/20 03/05/20 03/07/20 08:35 18:31 16:13 WBC 14.8 H MCV 98 H MCH 33 H Lymph % (Auto) 11.6 L [place] % (Auto) 7.4 H [place] # (Auto) 1.1 H Seg Neutrophils % 80.4 H Seg Neutrophils # 11.9 H Sodium Carbon Dioxide Creatinine Magnesium 6.20 H 5.70 H Albumin Ur Total Protein 24 Hr 03/07/20 16:13 WBC MCV MCH Lymph % (Auto) [place] % (Auto) [place] # (Auto) Seg Neutrophils % Seg Neutrophils # Sodium 135 L Carbon Dioxide 18 L Creatinine Magnesium Albumin 3.6 L Ur Total Protein 24 Hr Laboratory Results - last 24 hr 03/05/20 03/07/20 03/07/20 12:41 16:13 16:13 WBC 14.8 H RBC 3.85 Hgb 12.5 Hct 37.6 MCV 98 H MCH 33 H MCHC 33 RDW 14.0 Plt Count 219 Lymph % (Auto) 11.6 L [place] % (Auto) 7.4 H Eos % (Auto) 0.2 Baso % (Auto) 0.4 Lymph # (Auto) 1.7 [place] # (Auto) 1.1 H Eos # (Auto) 0.0 Baso # (Auto) 0.1 Seg Neutrophils % 80.4 H Seg Neutrophils # 11.9 H Sodium 135 L Potassium 4.0 Chloride 103.3 Carbon Dioxide 18 L Anion Gap 18 BUN 11 Creatinine 0.6 Estimated GFR > 60 BUN/Creatinine Ratio 18 Glucose 90 Calcium 9.4 Total Bilirubin 0.20 AST 13 ALT 9 Alkaline Phosphatase 81 Total Protein 7.2 Albumin 3.6 L Albumin/Globulin Ratio 1.0 Coronavirus (PCR) Negative
[2020-03-08] MEDS: PRENATAL VIT27-FE FUMARATE-FOLIC ACID VIT TAB PO SCH (10:11)
[2020-03-08] MEDS: NIFEdipine XL 60 MG TAB PO SCH (10:11)
--- NOTE | 2020-03-08 11:59 | Progress Note ---
Assessment and Plan Chronic hypertension 26 weeks gestation 12/2019 Echo: normal LVEF 55-60%. Recommend: Continue Labetalol and Procardia XL 60 mg daily for optimal blood pressure management. Otherwise, conservative cardiac management. Subjective Date of service: 03/08/20 Principal diagnosis: at 26 weeks, chronic hypertension, superimposed PreE Interval history: Patient is resting in bed comfortably. She has no cardiac complaints. Blood pressure has improved. Objective Vital Signs Temp Pulse Resp BP BP 03/08/20 11:39 80 155/81 03/08/20 10:39 83 134/73 03/08/20 09:39 80 146/77 03/08/20 08:38 65 144/86 03/08/20 08:23 67 134/84 03/08/20 08:22 98.3 F 67 16 134/84 03/08/20 07:39 69 142/68 03/08/20 06:39 83 127/68 03/08/20 05:39 88 128/65 03/08/20 04:39 75 112/59 03/08/20 03:44 77 158/80 03/08/20 03:39 80 172/80 03/08/20 02:38 87 135/73 03/08/20 01:38 79 136/73 03/08/20 01:27 77 133/73 03/07/20 23:39 87 126/61 03/07/20 22:39 71 136/69 03/07/20 21:39 80 161/84 03/07/20 20:37 77 142/72 03/07/20 20:35 98.4 F 16 03/07/20 18:11 77 163/86 03/07/20 17:41 78 161/84 03/07/20 17:11 75 166/77 03/07/20 16:50 98.7 F 75 18 164/79 03/07/20 16:41 75 164/79 03/07/20 16:11 74 168/80 03/07/20 15:41 73 174/80 03/07/20 15:11 78 176/81 03/07/20 15:09 71 137/67 03/07/20 14:41 71 137/67 03/07/20 14:11 68 121/59 03/07/20 13:41 71 131/65 03/07/20 13:11 65 177/82 03/07/20 12:41 72 167/80 03/07/20 12:12 68 135/80 03/07/20 12:11 68 135/80 03/07/20 12:10 98.9 F 64 18 133/71 03/07/20 12:08 64 133/71 - Physical Examination General: No Apparent Distress HEENT: Positive: PERRL Neck: Positive: trachea midline Cardiac: Positive: Reg Rate and Rhythm Neuro: Positive: Grossly Intact - Labs and Meds Cardiac Enzymes 03/07/20 Range/Units 16:13 AST 13 (5-40) units/L CBC 03/07/20 Range/Units 16:13 WBC 14.8 H (4.5-11.0) K/mm3 RBC 3.85 (3.65-5.03) M/mm3 Hgb 12.5 (10.1-14.3) gm/dl Hct 37.6 (30.3-42.9) % Plt Count 219 (140-440) K/mm3 Lymph # (Auto) 1.7 (1.2-5.4) K/mm3 [place] # (Auto) 1.1 H (0.0-0.8) K/mm3 Eos # (Auto) 0.0 (0.0-0.4) K/mm3 Baso # (Auto) 0.1 (0.0-0.1) K/mm3 Comprehensive Metabolic Panel 03/07/20 Range/Units 16:13 Sodium 135 L (137-145) mmol/L Potassium 4.0 (3.6-5.0) mmol/L Chloride 103.3 (98-107) mmol/L Carbon Dioxide 18 L (22-30) mmol/L BUN 11 (7-17) mg/dL Creatinine 0.6 (0.6-1.2) mg/dL Glucose 90 (65-100) mg/dL Calcium 9.4 (8.4-10.2) mg/dL AST 13 (5-40) units/L ALT 9 (7-56) units/L Alkaline Phosphatase 81 (35-129) units/L Total Protein 7.2 (6.3-8.2) g/dL Albumin 3.6 L (3.9-5) g/dL
[2020-03-09] MEDS: PRENATAL VIT27-FE FUMARATE-FOLIC ACID VIT TAB PO SCH (10:09)
[2020-03-09] MEDS: NIFEdipine XL 60 MG TAB PO SCH (10:09)
--- NOTE | 2020-03-09 15:50 | Progress Note ---
Assessment and Plan - Patient Problems (1) Pre-eclampsia added to pre-existing hypertension Current Visit: Yes Status: Acute Plan to address problem: PT is betamethasone complete. Just spoke with RN who noted that BPs were elevated but pt also got her Labetalol a little late. Last BP improved to 146/72. Cont Labetalol and Procarida and cont to watch BPs closely. Subjective - Subjective Date of service: 03/09/20 (26w 2 d) Principal diagnosis: at 26 weeks, chronic hypertension, superimposed PreE Patient reports: movement normal (No preeclamptic sxs.), no new complaints, no loss of fluid, no vaginal bleeding, no contractions Objective - Vital Signs Vital Signs: Vital Signs - 12hr 03/09/20 03/09/20 03/09/20 03:53 04:23 04:45 Temperature 98.2 F Pulse Rate 80 77 72 Respiratory 18 Rate Blood Pressure 126/62 141/78 Blood Pressure 141/71 [Left] 03/09/20 03/09/20 03/09/20 04:53 05:23 05:53 Temperature Pulse Rate 82 77 71 Respiratory Rate Blood Pressure 134/74 171/81 136/75 Blood Pressure [Left] 03/09/20 03/09/20 03/09/20 06:23 06:53 07:23 Temperature Pulse Rate 71 79 81 Respiratory Rate Blood Pressure 122/61 143/74 147/68 Blood Pressure [Left] 03/09/20 03/09/20 03/09/20 07:53 08:23 09:23 Temperature Pulse Rate 87 94 H 86 Respiratory Rate Blood Pressure 149/75 187/87 142/88 Blood Pressure [Left] 03/09/20 03/09/20 03/09/20 09:53 10:03 10:23 Temperature Pulse Rate 75 79 82 Respiratory Rate Blood Pressure 206/95 166/91 185/88 Blood Pressure [Left] 03/09/20 03/09/20 03/09/20 13:23 13:55 14:23 Temperature Pulse Rate 89 86 87 Respiratory Rate Blood Pressure 176/86 178/96 173/92 Blood Pressure [Left] 03/09/20 03/09/20 03/09/20 14:53 15:14 15:16 Temperature Pulse Rate 91 H 82 82 Respiratory Rate Blood Pressure 180/101 173/90 173/90 Blood Pressure [Left] 03/09/20 15:23 Temperature Pulse Rate 89 Respiratory Rate Blood Pressure 199/97 Blood Pressure [Left] - Exam FHR: auscultation normal - Labs Labs: Abnormal Labs 03/04/20 03/04/20 03/04/20 13:54 13:54 18:00 WBC MCV 98 H MCH 33 H Lymph % (Auto) [place] % (Auto) [place] # (Auto) Seg Neutrophils % Seg Neutrophils # Sodium Carbon Dioxide Creatinine 0.5 L Magnesium Albumin Ur Total Protein 24 Hr 444.00 H 03/05/20 03/05/20 03/07/20 08:35 18:31 16:13 WBC 14.8 H MCV 98 H MCH 33 H Lymph % (Auto) 11.6 L [place] % (Auto) 7.4 H [place] # (Auto) 1.1 H Seg Neutrophils % 80.4 H Seg Neutrophils # 11.9 H Sodium Carbon Dioxide Creatinine Magnesium 6.20 H 5.70 H Albumin Ur Total Protein 24 Hr 03/07/20 16:13 WBC MCV MCH Lymph % (Auto) [place] % (Auto) [place] # (Auto) Seg Neutrophils % Seg Neutrophils # Sodium 135 L Carbon Dioxide 18 L Creatinine Magnesium Albumin 3.6 L Ur Total Protein 24 Hr
[2020-03-09] MEDS: ACETAMINOPHEN 325 MG TAB PO PRN (20:48)
--- NOTE | 2020-03-09 23:14 | Ultrasound Report ---
ULTRASOUND OBSTETRIC LIMITED ULTRASOUND BIOPHYSICAL PROFILE INDICATION / CLINICAL INFORMATION: wellbeing. COMPARISON: 03/06/2020 FINDINGS: BREATHING MOVEMENT = 2 GROSS BODY MOVEMENT = 2 TONE = 2 QUALITATIVE AMNIOTIC FLUID VOLUME = 2 TOTAL BIOPHYSICAL SCORE = 8/8 HEART RATE (beats per minute): 145 PRESENTATION: Cephalic. ADDITIONAL FINDINGS: None. IMPRESSION: 1. Biophysical Score = 8/8 Signer Name: Glen Lucas MD Signed: 03/09/2020 11:13 PM Workstation Name: [id number]
[2020-03-10] MEDS: NIFEdipine XL 60 MG TAB PO SCH (09:07)
--- NOTE | 2020-03-10 09:38 | Progress Note ---
Assessment and Plan - Patient Problems (1) Pre-eclampsia added to pre-existing hypertension Current Visit: Yes Status: Acute Plan to address problem: Betamethasone complete. Cont Labetalol 400 mg TID and her Procarida xL 60mg qd. Spoke with RN and will add Hydralazine prn for BPs 160s/110s. BPP yesterday was 8. Subjective - Subjective Date of service: 03/10/20 (26w 3d) Principal diagnosis: at 26 weeks, chronic hypertension, superimposed PreE Patient reports: movement normal (No preeclamptic sxs. PT very comf ortable in bed with no complaints.), no new complaints, no loss of fluid, no vaginal bleeding, no contractions Objective - Vital Signs Vital Signs: Vital Signs - 12hr 03/09/20 03/09/20 03/10/20 22:12 22:14 07:01 Temperature Pulse Rate 73 80 72 Blood Pressure 176/89 176/89 166/77 Blood Pressure [Left] 03/10/20 03/10/20 03/10/20 07:02 07:15 07:27 Temperature 99.1 F Pulse Rate 75 75 Blood Pressure 165/76 165/76 Blood Pressure [Left] 03/10/20 03/10/20 09:05 09:10 Temperature Pulse Rate 73 73 Blood Pressure 158/85 Blood Pressure 158/85 [Left] - Exam FHR comments: WNL - Labs Labs: Abnormal Labs 03/04/20 03/04/20 03/04/20 13:54 13:54 18:00 WBC MCV 98 H MCH 33 H Lymph % (Auto) [place] % (Auto) [place] # (Auto) Seg Neutrophils % Seg Neutrophils # Sodium Carbon Dioxide Creatinine 0.5 L Magnesium Albumin Ur Total Protein 24 Hr 444.00 H 03/05/20 03/05/20 03/07/20 08:35 18:31 16:13 WBC 14.8 H MCV 98 H MCH 33 H Lymph % (Auto) 11.6 L [place] % (Auto) 7.4 H [place] # (Auto) 1.1 H Seg Neutrophils % 80.4 H Seg Neutrophils # 11.9 H Sodium Carbon Dioxide Creatinine Magnesium 6.20 H 5.70 H Albumin Ur Total Protein 24 Hr 03/07/20 16:13 WBC MCV MCH Lymph % (Auto) [place] % (Auto) [place] # (Auto) Seg Neutrophils % Seg Neutrophils # Sodium 135 L Carbon Dioxide 18 L Creatinine Magnesium Albumin 3.6 L Ur Total Protein 24 Hr
[2020-03-10] MEDS: hydrALAZINE 20 MG/1 ML INJ IV PRN ×2 (14:18→20:43)
--- NOTE | 2020-03-11 08:32 | Ultrasound Report ---
US OB BPP wo non-stress, US OB follow up INDICATION: wellbeing. TECHNIQUE: Transabdominal. Color Doppler was performed. COMPARISON: Ultrasound from 03/09/2020, 03/06/2020, 03/05/2020. FINDINGS: There is a single intrauterine . Biparietal Diameter = 6.15 cm = 25 weeks 0 days Head Circumference = 24.25 cm = 26 weeks 2 days Abdominal Circumference = 21.38 cm = 25 weeks 6 days Femur Length = 4.62 cm = 25 weeks 2 days Average Ultrasound Age (AUA) = 25 weeks 4 days Heart Rate: 141 beats per minute. Position: transverse. Head to maternal left Amniotic Fluid Volume: normal Amniotic Fluid Index (MICHELLE) in cm (if calculated): 13.3 cm. Biophysical Profile: breathing movements: 2 movements:2 posture and tone:2 Qualitative amniotic fluid volume: 2 IMPRESSION: 1. Single live intrauterine with estimated sonographic age of 25 weeks 4 days. 2. Biophysical profile is 8 of 8 Signer Name: John Valdez MD Signed: 03/11/2020 8:27 AM Workstation Name: [id number]
--- NOTE | 2020-03-11 10:01 | Progress Note ---
Assessment and Plan - Patient Problems (1) Pre-eclampsia added to pre-existing hypertension Current Visit: Yes Status: Acute Plan to address problem: Patient with know CHTN now with preeclampsia TP 444. BPs meds given late today. Possible elevated BPs associated with positioning and untreated anxiety/PTSD. Will monitor BPs closely. Trends labs. S/p BMZ x 2 for lung maturity. S/p magnesium sulfate for neuroprotection. ?reported diagnostic heart failure however normal EF. --Monitor for s/sx for severe preE --Continue labetalol 400mg q8hrs, procardia 60mg XL qday, IV antihypertensives prn --Daily NST --Weekly BPPs starting at 28 weeks --US for growth; serial growth US every 3-4 weeks (2) Anxiety Current Visit: Yes Status: Acute Plan to address problem: --Hx of PTSD and anxiety previously on multiple meds including Depakote, lithium, benzos. Possible component of intermittently elevated BPs --Ambien 5mg qHS prn sleep --Start Xanax 0.5 mg day tarah for anxiety Subjective - Subjective Date of service: 03/11/20 Principal diagnosis: at 26 weeks, chronic hypertension, superimposed PreE Interval history: Patient doing well. Understanding plan of care. Denies PIH symptoms including RUQ pain, QUINTANILLA, scotoma. BPs still elevated, but BPs meds given late today. +FM. No labor complaints. Patient reports having anxiety/PTSD with hx of multiple medications including Depakote, lithium, and benzos. Thinks that this being untreated could be a component of her elevated BPs. Patient reports: movement normal (No preeclamptic sxs. PT very comfortable in bed with no complaints.), no new complaints, no loss of fluid, no vaginal bleeding, no contractions Objective - Vital Signs Vital Signs: Vital Signs - 12hr 03/10/20 03/10/20 03/10/20 22:31 22:32 23:22 Temperature Pulse Rate 89 83 Blood Pressure 166/79 166/79 150/72 03/10/20 03/10/20 03/11/20 23:30 23:35 00:36 Temperature 98.5 F Pulse Rate 75 82 Blood Pressure 149/60 144/74 03/11/20 03/11/20 03/11/20 01:36 02:36 03:30 Temperature 98.0 F Pulse Rate 88 77 Blood Pressure 175/90 138/65 03/11/20 03/11/20 03/11/20 04:20 08:16 08:17 Temperature Pulse Rate 72 75 71 Blood Pressure 147/73 169/99 170/79 03/11/20 08:19 Temperature Pulse Rate 71 Blood Pressure 170/79 - Exam Abdomen: Present: normal appearance, normal bowel sounds FHR: category 1 Uterine Contraction Monitor Mode: External Uterine Contraction Pattern: Absent - Labs Labs: Abnormal Labs 03/04/20 03/04/20 03/04/20 13:54 13:54 18:00 WBC MCV 98 H MCH 33 H Lymph % (Auto) [place] % (Auto) [place] # (Auto) Seg Neutrophils % Seg Neutrophils # Sodium Carbon Dioxide Creatinine 0.5 L Magnesium Albumin Ur Total Protein 24 Hr 444.00 H 03/05/20 03/05/20 03/07/20 08:35 18:31 16:13 WBC 14.8 H MCV 98 H MCH 33 H Lymph % (Auto) 11.6 L [place] % (Auto) 7.4 H [place] # (Auto) 1.1 H Seg Neutrophils % 80.4 H Seg Neutrophils # 11.9 H Sodium Carbon Dioxide Creatinine Magnesium 6.20 H 5.70 H Albumin Ur Total Protein 24 Hr 03/07/20 16:13 WBC MCV MCH Lymph % (Auto) [place] % (Auto) [place] # (Auto) Seg Neutrophils % Seg Neutrophils # Sodium 135 L Carbon Dioxide 18 L Creatinine Magnesium Albumin 3.6 L Ur Total Protein 24 Hr
[2020-03-11] MEDS: NIFEdipine XL 60 MG TAB PO SCH (11:56)
--- NOTE | 2020-03-11 14:56 | Consultation ---
History of Present Illness Consult date: 03/11/20 Requesting physician: SARAN DILLON History of present illness: Ms. López is a 39y/o 26+0 weeks GA who is admitted with chronic hypertension and now a 24hour urine 444mg. The patient was admitted with new onset severe range blood pressures from her OBGYN's office with blood pressures in 210s/100s. Discussed with Frandy earlier today BP's remain labile - 169/99, 170/79, 157/74 Denies QUINTANILLA's scotoma or RUQ Pain Dr. Wise reported normal EF as there was concern for CHF - (patient denies h/o CHF - admits to not taking meds consistently at home) Today's BPP reported 11/27 Will try to find EFW done in house Mitra on Labetalol 400 TID , Procardia 60 XL q day and IV antihypertensive meds Past History Past Medical History: heart disease, hypertension Past Surgical History: no surgical history - Obstetrical History : 8 Medications and Allergies Allergies Allergy/AdvReac Type Severity Reaction Status Date / Time latex Allergy Itching Verified 03/04/20 15:17 sulfur [From Sulfur-8] Allergy Itching Verified 03/04/20 15:17 Home Medications Medication Instructions Recorded Confirmed Last Taken Type Vitamin 1 tab PO DAILY 03/05/20 03/05/20 03/03/20 History amLODIPine 10 mg PO DAILY 03/05/20 03/05/20 03/04/20 History labetaloL 400 mg PO BID 03/05/20 03/05/20 03/03/20 History Active Meds: Active Medications Acetaminophen (Tylenol) 650 mg PO Q6H PRN PRN Reason: Pain, Mild (1-3) Last Admin: 03/09/20 20:48 Dose: 650 mg Documented by: Alprazolam (Xanax) 0.5 mg PO QDAY [facility] Hydralazine HCl (Apresoline) 10 mg IV Q60MIN PRN PRN Reason: Blood Pressure Last Admin: 03/10/20 20:43 Dose: 10 mg Documented by: Lactated Ringer's (Lactated Ringers) 1,000 mls @ 75 mls/hr IV DIRECT [facility] Last Admin: 03/05/20 16:17 Dose: 75 mls/hr Documented by: Labetalol HCl (Labetalol) 400 mg PO Q8HR [facility] Last Admin: 03/11/20 14:42 Dose: 400 mg Documented by: Multivitamins/Iron/Calcium ( Vitamin) 1 each PO QDAY [facility] Last Admin: 03/09/20 10:09 Dose: 1 each Documented by: Nifedipine (Procardia Xl) 60 mg PO QDAY [facility] Last Admin: 03/11/20 11:56 Dose: 60 mg Documented by: Zolpidem Tartrate (Ambien) 5 mg PO QHS PRN PRN Reason: Sleep Last Admin: 03/04/20 23:53 Dose: 5 mg Documented by: - Vital Signs Vital signs: Vital Signs Pulse BP 70 165/88 03/04/20 14:26 03/04/20 14:26 Temp Pulse Resp BP Pulse Ox 97.2 F L 75 18 157/74 100 03/11/20 14:45 03/11/20 14:46 03/09/20 20:48 03/11/20 14:46 03/05/20 23:04 Results Result Diagrams: 03/07/20 16:13 03/07/20 16:13 All other labs normal. Assessment and Plan Assessment and Plan IMPRESSIONS: 1. [place] IUP at 26 plus weeks 2. CHTN with Superimposed Preeclampsia and BP's Labile in severe range 3. AMA 4. S/P Steroid 5. S/P Mg 6. ?? H/O CHF but EF normal per Dr. Wise Recs: 1. cont present management 2. BPP Twice per week 3. NICU consult if not done 4. Delivery for previous mentioned criteria for Preeclampsia with severe features or compromise 5. Goal to get to 34 weeks for delivery 6. PIH labs q week 7. US EFW q [address] EFW in grams on chart so we can determine exact EFW percentile or call US to get Percentile
[2020-03-11] MEDS: ALPRAZolam 0.5 MG TAB PO SCH (20:30)
[2020-03-12] MEDS: NIFEdipine XL 60 MG TAB PO SCH (10:05)
[2020-03-12] MEDS: PRENATAL VIT27-FE FUMARATE-FOLIC ACID VIT TAB PO SCH (10:05)
[2020-03-12] MEDS: ALPRAZolam 0.5 MG TAB PO SCH (10:46)
--- NOTE | 2020-03-12 14:51 | Progress Note ---
Assessment and Plan - Patient Problems (1) Pre-eclampsia added to pre-existing hypertension Current Visit: Yes Status: Acute (2) Anxiety Current Visit: Yes Status: Acute Subjective - Subjective Principal diagnosis: at 26 weeks, chronic hypertension, superimposed PreE Interval history: Patient doing well. Understanding plan of care. Denies PIH symptoms including RUQ pain, QUINTANILLA, scotoma. BPs improved from yesterday. +FM. No labor complaints. Patient reports feeling better and less anxious from yesterday. Patient reports: movement normal (No preeclamptic sxs. PT very comfortable in bed with no complaints.), no new complaints, no loss of fluid, no vaginal bleeding, no contractions Objective - Vital Signs Vital Signs: Vital Signs - 12hr 03/12/20 03/12/20 03/12/20 03:30 04:08 05:09 Temperature 98.1 F Pulse Rate 75 73 Respiratory Rate Blood Pressure 139/71 115/58 Blood Pressure [Right] 03/12/20 03/12/20 03/12/20 06:09 07:09 07:18 Temperature 98.7 F Pulse Rate 70 66 72 Respiratory 14 Rate Blood Pressure 133/65 169/79 155/73 Blood Pressure 155/73 [Right] 03/12/20 03/12/20 03/12/20 08:09 09:10 10:09 Temperature Pulse Rate 67 73 74 Respiratory Rate Blood Pressure 142/81 140/78 164/82 Blood Pressure [Right] 03/12/20 03/12/20 03/12/20 11:10 12:00 12:01 Temperature 98.2 F Pulse Rate 72 73 73 Respiratory 16 Rate Blood Pressure 149/85 148/71 Blood Pressure 148/71 [Right] 03/12/20 03/12/20 03/12/20 13:09 13:54 14:09 Temperature Pulse Rate 79 79 71 Respiratory Rate Blood Pressure 135/70 135/70 130/72 Blood Pressure [Right] - Exam Abdomen: Present: normal appearance, normal bowel sounds FHR: category 1 Uterine Contraction Monitor Mode: External Uterine Contraction Pattern: Absent - Labs Labs: Abnormal Labs 03/04/20 03/04/20 03/04/20 13:54 13:54 18:00 WBC MCV 98 H MCH 33 H Lymph % (Auto) [place] % (Auto) [place] # (Auto) Seg Neutrophils % Seg Neutrophils # Sodium Carbon Dioxide Creatinine 0.5 L Magnesium Albumin Ur Total Protein 24 Hr 444.00 H 03/05/20 03/05/20 03/07/20 08:35 18:31 16:13 WBC 14.8 H MCV 98 H MCH 33 H Lymph % (Auto) 11.6 L [place] % (Auto) 7.4 H [place] # (Auto) 1.1 H Seg Neutrophils % 80.4 H Seg Neutrophils # 11.9 H Sodium Carbon Dioxide Creatinine Magnesium 6.20 H 5.70 H Albumin Ur Total Protein 24 Hr 03/07/20 16:13 WBC MCV MCH Lymph % (Auto) [place] % (Auto) [place] # (Auto) Seg Neutrophils % Seg Neutrophils # Sodium 135 L Carbon Dioxide 18 L Creatinine Magnesium Albumin 3.6 L Ur Total Protein 24 Hr
[2020-03-13] MEDS: NIFEdipine XL 60 MG TAB PO SCH (10:08)
[2020-03-13] MEDS: ALPRAZolam 0.5 MG TAB PO SCH (10:09)
--- NOTE | 2020-03-13 16:46 | Progress Note ---
Assessment and Plan - Patient Problems (1) Pre-eclampsia added to pre-existing hypertension Current Visit: Yes Status: Acute Plan to address problem: Patient with know CHTN now with preeclampsia TP 444. BPs meds given late today. Possible elevated BPs associated with positioning and untreated anxiety/PTSD. Will monitor BPs closely. Trends labs. S/p BMZ x 2 for lung maturity. S/p magnesium sulfate for neuroprotection. ?reported diagnostic heart failure however normal EF. --Monitor for s/sx for severe preE --Continue labetalol 400mg q8hrs, procardia 60mg XL qday, IV antihypertensives prn --Daily NST --Weekly BPPs starting at 28 weeks --US for growth; serial growth US every 3-4 weeks (2) Anxiety Current Visit: Yes Status: Acute Plan to address problem: --Hx of PTSD and anxiety previously on multiple meds including Depakote, lithium, benzos. Possible component of intermittently elevated BPs --Ambien 5mg qHS prn sleep --Start Xanax 0.5 mg day tarah for anxiety Subjective - Subjective Principal diagnosis: at 76 weeks, chronic hypertension, superimposed PreE Interval history: Patient doing well. Understanding plan of care. Denies PIH symptoms including RUQ pain, QUINTANILLA, scotoma. BPs improved from yesterday. +FM. No labor complaints. Patient happy with new BP management. Wants to know the EFW of fetus. Patient reports: movement normal (No preeclamptic sxs. PT very comfortable in bed with no complaints.), no new complaints, no loss of fluid, no vaginal bleeding, no contractions Objective - Vital Signs Vital Signs: Vital Signs - 12hr 03/13/20 03/13/20 03/13/20 06:12 06:13 07:09 Temperature Pulse Rate 77 77 67 Respiratory Rate Blood Pressure 123/74 123/74 117/71 Blood Pressure [Right] 03/13/20 03/13/20 03/13/20 07:40 07:42 08:09 Temperature 98.6 F Pulse Rate 71 71 81 Respiratory 18 Rate Blood Pressure 126/76 138/89 Blood Pressure 126/76 [Right] 03/13/20 03/13/20 03/13/20 09:09 10:10 10:30 Temperature Pulse Rate 80 75 69 Respiratory Rate Blood Pressure 154/93 141/77 129/83 Blood Pressure [Right] 03/13/20 03/13/20 03/13/20 12:26 12:30 13:31 Temperature 98.6 F Pulse Rate 68 68 80 Respiratory 18 Rate Blood Pressure 136/88 143/92 143/87 Blood Pressure 136/88 [Right] 03/13/20 03/13/20 03/13/20 14:16 14:17 14:30 Temperature Pulse Rate 75 75 78 Respiratory Rate Blood Pressure 132/72 132/72 131/73 Blood Pressure [Right] 03/13/20 03/13/20 16:13 16:30 Temperature 98.6 F Pulse Rate 79 74 Respiratory 20 Rate Blood Pressure 116/61 121/63 Blood Pressure 116/61 [Right] - Exam Abdomen: Present: normal appearance, normal bowel sounds, other (gravid) FHR: category 1 Uterine Contraction Monitor Mode: External Uterine Contraction Pattern: Absent - Labs Labs: Abnormal Labs 03/04/20 03/04/20 03/04/20 13:54 13:54 18:00 WBC MCV 98 H MCH 33 H Lymph % (Auto) [place] % (Auto) [place] # (Auto) Seg Neutrophils % Seg Neutrophils # Sodium Carbon Dioxide Creatinine 0.5 L Magnesium Albumin Ur Total Protein 24 Hr 444.00 H 03/05/20 03/05/20 03/07/20 08:35 18:31 16:13 WBC 14.8 H MCV 98 H MCH 33 H Lymph % (Auto) 11.6 L [place] % (Auto) 7.4 H [place] # (Auto) 1.1 H Seg Neutrophils % 80.4 H Seg Neutrophils # 11.9 H Sodium Carbon Dioxide Creatinine Magnesium 6.20 H 5.70 H Albumin Ur Total Protein 24 Hr 03/07/20 16:13 WBC MCV MCH Lymph % (Auto) [place] % (Auto) [place] # (Auto) Seg Neutrophils % Seg Neutrophils # Sodium 135 L Carbon Dioxide 18 L Creatinine Magnesium Albumin 3.6 L Ur Total Protein 24 Hr
--- NOTE | 2020-03-14 09:35 | Progress Note ---
Assessment and Plan - Patient Problems (1) Pre-eclampsia added to pre-existing hypertension Current Visit: Yes Status: Acute Plan to address problem: Pt stable at 27 weeks with much improved BP control now with current Labetalol and Procardia xL dosing along with her once daily Xanax. PT with CHTN with superimposed preeclamspia per 24 hr urine. Steroid complete. Cont expectant care. Subjective - Subjective Date of service: 03/14/20 (27w 0d) Principal diagnosis: at 27 weeks, chronic hypertension, superimposed PreE Patient reports: movement normal (No preeclamptic sxs. PT very comfortable in bed with no complaints. PT notes that Xanax has helped with her BPs.), no new complaints, no loss of fluid, no vaginal bleeding, no contractions Objective - Vital Signs Vital Signs: Vital Signs - 12hr 03/13/20 03/13/20 03/14/20 22:06 22:09 02:11 Temperature 98.3 F Pulse Rate 79 73 Respiratory 17 Rate Blood Pressure 125/76 125/76 124/57 03/14/20 03/14/20 05:32 05:33 Temperature 97.9 F Pulse Rate 79 Respiratory Rate Blood Pressure 139/67 139/67 - Exam FHR comments: baseline WNL, good LTV Uterine Contraction Pattern: Absent - Labs Labs: Abnormal Labs 03/04/20 03/04/20 03/04/20 13:54 13:54 18:00 WBC MCV 98 H MCH 33 H Lymph % (Auto) [place] % (Auto) [place] # (Auto) Seg Neutrophils % Seg Neutrophils # Sodium Carbon Dioxide Creatinine 0.5 L Magnesium Albumin Ur Total Protein 24 Hr 444.00 H 03/05/20 03/05/20 03/07/20 08:35 18:31 16:13 WBC 14.8 H MCV 98 H MCH 33 H Lymph % (Auto) 11.6 L [place] % (Auto) 7.4 H [place] # (Auto) 1.1 H Seg Neutrophils % 80.4 H Seg Neutrophils # 11.9 H Sodium Carbon Dioxide Creatinine Magnesium 6.20 H 5.70 H Albumin Ur Total Protein 24 Hr 03/07/20 16:13 WBC MCV MCH Lymph % (Auto) [place] % (Auto) [place] # (Auto) Seg Neutrophils % Seg Neutrophils # Sodium 135 L Carbon Dioxide 18 L Creatinine Magnesium Albumin 3.6 L Ur Total Protein 24 Hr
[2020-03-14] MEDS: PRENATAL VIT27-FE FUMARATE-FOLIC ACID VIT TAB PO SCH (10:06)
[2020-03-14] MEDS: NIFEdipine XL 60 MG TAB PO SCH (10:07)
[2020-03-14] MEDS: ALPRAZolam 0.5 MG TAB PO SCH (10:29)
--- NOTE | 2020-03-14 11:07 | Progress Note ---
Assessment and Plan Chronic hypertension 27 weeks gestation 12/2019 Echo: normal LVEF 55-60%. Recommend: Continue optimal blood pressure management. Otherwise, conservative cardiac management. Subjective Date of service: 03/14/20 Principal diagnosis: at 27 weeks, chronic hypertension, superimposed PreE Interval history: Patient is sitting up in bed and has no complaints. Wants to go home. Objective Vital Signs Temp Pulse Resp BP BP Pulse Ox 03/14/20 10:04 75 163/70 03/14/20 10:00 98.2 F 75 16 100 03/14/20 05:33 139/67 03/14/20 05:32 97.9 F 79 139/67 03/14/20 02:11 98.3 F 73 17 124/57 03/13/20 22:09 125/76 03/13/20 22:06 79 125/76 03/13/20 19:21 98.2 F 18 03/13/20 19:09 83 135/76 03/13/20 18:21 81 125/71 03/13/20 18:17 98.4 F 81 20 125/71 03/13/20 16:30 74 121/63 03/13/20 16:13 98.6 F 79 20 116/61 116/61 03/13/20 14:30 78 131/73 03/13/20 14:17 75 132/72 03/13/20 14:16 75 132/72 03/13/20 13:31 80 143/87 03/13/20 12:30 68 143/92 03/13/20 12:26 98.6 F 68 18 136/88 136/88 - Physical Examination General: No Apparent Distress HEENT: Positive: PERRL Neck: Positive: trachea midline Cardiac: Positive: Reg Rate and Rhythm Lungs: Positive: Decreased Breath Sounds Neuro: Positive: Grossly Intact
[2020-03-14 16:14] LABS: Hematocrit 33.7 % (30.3-42.9); Hemoglobin 11.4 gm/dl (10.1-14.3); Mean Corpuscular HGB Conc 34 % (30-34); Mean Corpuscular Volume 97 fl (79-97); Platelet Count 217 K/mm3 (140-440); Red Blood Count 3.48 M/mm3 (3.65-5.03); Red Cell Distribution Width 13.5 % (13.2-15.2)
[2020-03-14 16:24] LABS: Alanine Aminotransferase 7 units/L (7-56); Albumin 3.1 g/dL (3.9-5); Blood Urea Nitrogen 7 mg/dL (7-17); Calcium 9.1 mg/dL (8.4-10.2); Hemolysis Index 23
[2020-03-14 16:26] LABS: BUN/Creatinine Ratio 14
[2020-03-15] MEDS: NIFEdipine XL 60 MG TAB PO SCH (09:50)
[2020-03-15] MEDS: ALPRAZolam 0.5 MG TAB PO SCH (09:50)
[2020-03-15] MEDS: PRENATAL VIT27-FE FUMARATE-FOLIC ACID VIT TAB PO SCH (09:50)
--- NOTE | 2020-03-15 10:04 | Progress Note ---
Assessment and Plan - Patient Problems (1) Pre-eclampsia added to pre-existing hypertension Current Visit: Yes Status: Acute Plan to address problem: Patient with know CHTN now with preeclampsia TP 444. BPs meds given late today. Possible elevated BPs associated with positioning and untreated anxiety/PTSD. Will monitor BPs closely. Trends labs. S/p BMZ x 2 for lung maturity. S/p magnesium sulfate for neuroprotection. ?reported diagnostic heart failure however normal EF. --Monitor for s/sx for severe preE --Continue labetalol 400mg q8hrs, procardia 60mg XL qday, IV antihypertensives prn --Daily NST --Weekly BPPs starting at 28 weeks --US for growth; serial growth US every 3-4 weeks (2) Anxiety Current Visit: Yes Status: Acute Plan to address problem: --Hx of PTSD and anxiety previously on multiple meds including Depakote, lithium, benzos. Possible component of intermittently elevated BPs --Ambien 5mg qHS prn sleep --Start Xanax 0.5 mg day tarah for anxiety Subjective - Subjective Principal diagnosis: at 27 weeks, chronic hypertension, superimposed PreE Interval history: Patient doing well. Understanding plan of care. Denies PIH symptoms including RUQ pain, QUINTANILLA, scotoma. BPs improved from yesterday. +FM. No labor complaints. Patient happy with new BP management. Reports that she wishes to go home after she is able to in order to be home with family for the holiday. Understands the importance of admission and reports that she understanding that she was not taking her health seriously before. Previously not compliant with meds. Patient reports: movement normal (No preeclamptic sxs. PT very comfortable in bed with no complaints. PT notes that Xanax has helped with her BPs.), no new complaints, no loss of fluid, no vaginal bleeding, no contractions Objective - Vital Signs Vital Signs: Vital Signs - 12hr 03/14/20 03/14/20 03/14/20 22:03 22:05 22:06 Temperature Pulse Rate 78 76 78 Respiratory Rate Blood Pressure 162/79 150/67 162/79 Blood Pressure [Right] 03/15/20 03/15/20 03/15/20 00:00 02:55 04:00 Temperature 98.0 F 97.9 F Pulse Rate 76 Respiratory Rate Blood Pressure 137/66 Blood Pressure [Right] 03/15/20 03/15/20 03/15/20 06:29 06:33 07:07 Temperature Pulse Rate 69 69 82 Respiratory Rate Blood Pressure 129/63 129/63 135/84 Blood Pressure [Right] 03/15/20 03/15/20 03/15/20 07:15 08:13 09:13 Temperature 98.7 F Pulse Rate 82 72 73 Respiratory 14 Rate Blood Pressure 135/67 139/79 Blood Pressure 135/84 [Right] - Exam Abdomen: Present: normal appearance, normal bowel sounds, other (gravid) FHR: category 1 Uterine Contraction Monitor Mode: External - Labs Labs: Abnormal Labs 03/04/20 03/04/20 03/04/20 13:54 13:54 18:00 WBC RBC MCV 98 H MCH 33 H Lymph % (Auto) [place] % (Auto) [place] # (Auto) Seg Neutrophils % Seg Neutrophils # Sodium Potassium Carbon Dioxide Creatinine 0.5 L Magnesium Total Protein Albumin Ur Total Protein 24 Hr 444.00 H 03/05/20 03/05/20 03/07/20 08:35 18:31 16:13 WBC 14.8 H RBC MCV 98 H MCH 33 H Lymph % (Auto) 11.6 L [place] % (Auto) 7.4 H [place] # (Auto) 1.1 H Seg Neutrophils % 80.4 H Seg Neutrophils # 11.9 H Sodium Potassium Carbon Dioxide Creatinine Magnesium 6.20 H 5.70 H Total Protein Albumin Ur Total Protein 24 Hr 03/07/20 03/14/20 03/14/20 16:13 15:45 15:45 WBC RBC 3.48 L MCV MCH 33 H Lymph % (Auto) [place] % (Auto) [place] # (Auto) Seg Neutrophils % Seg Neutrophils # Sodium 135 L 134 L Potassium 3.5 L Carbon Dioxide 18 L Creatinine 0.5 L Magnesium Total Protein 5.9 L Albumin 3.6 L 3.1 L Ur Total Protein 24 Hr Laboratory Results - last 24 hr 03/14/20 03/14/20 15:45 15:45 WBC 11.0 RBC 3.48 L Hgb 11.4 Hct 33.7 MCV 97 MCH 33 H MCHC 34 RDW 13.5 Plt Count 217 Sodium 134 L Potassium 3.5 L Chloride 100.0 Carbon Dioxide 25 Anion Gap 13 BUN 7 Creatinine 0.5 L Estimated GFR > 60 BUN/Creatinine Ratio 14 Glucose 92 Calcium 9.1 Total Bilirubin 0.20 AST 10 ALT 7 Alkaline Phosphatase 86 Total Protein 5.9 L Albumin 3.1 L Albumin/Globulin Ratio 1.1
[2020-03-16] MEDS: NIFEdipine XL 60 MG TAB PO SCH (10:03)
[2020-03-16] MEDS: PRENATAL VIT27-FE FUMARATE-FOLIC ACID VIT TAB PO SCH (10:03)
[2020-03-16] MEDS: ALPRAZolam 0.5 MG TAB PO SCH (10:04)
--- NOTE | 2020-03-16 13:41 | Progress Note ---
Assessment and Plan - Patient Problems (1) Pre-eclampsia added to pre-existing hypertension Current Visit: Yes Status: Acute Plan to address problem: Patient with know CHTN now with preeclampsia TP 444. BPs meds given late today. Possible elevated BPs associated with positioning and untreated anxiety/PTSD. Will monitor BPs closely. Trends labs. S/p BMZ x 2 for lung maturity. S/p magnesium sulfate for neuroprotection. ?reported diagnostic heart failure however normal EF. Patient desires to go home if BPs improved. Will consider if evening BPs improved. --Monitor for s/sx for severe preE --Increase labetalol from 400mg to 500mg q8hrs, procardia 60mg XL qday, IV antihypertensives prn --Daily NST --Weekly BPPs starting at 28 weeks --US for growth; serial growth US every 3-4 weeks (2) Anxiety Current Visit: Yes Status: Acute Plan to address problem: --Hx of PTSD and anxiety previously on multiple meds including Depakote, lithium, benzos. Possible component of intermittently elevated BPs --Ambien 5mg qHS prn sleep --Start Xanax 0.5 mg day tarah for anxiety Subjective - Subjective Date of service: 03/16/20 Principal diagnosis: at 27 weeks, chronic hypertension, superimposed PreE Interval history: Patient doing well. Understanding plan of care. Denies PIH symptoms including RUQ pain, QUINTANILLA, scotoma. BPs improved from yesterday. +FM. No labor complaints. Increased BPs meds last night. Denies adverse symptoms. Feels well. Patient reports: movement normal (No preeclamptic sxs. PT very comfortable in bed with no complaints. PT notes that Xanax has helped with her BPs.), no new complaints, no loss of fluid, no vaginal bleeding, no contractions Objective - Vital Signs Vital Signs: Vital Signs - 12hr 03/16/20 03/16/20 03/16/20 02:06 03:10 06:25 Temperature 97.9 F Pulse Rate 61 73 Respiratory Rate Blood Pressure 134/72 133/63 Blood Pressure [Right] 03/16/20 03/16/20 03/16/20 06:27 08:04 08:06 Temperature 98.6 F Pulse Rate 73 69 69 Respiratory 16 Rate Blood Pressure 133/63 124/60 Blood Pressure 124/60 [Right] 03/16/20 03/16/20 11:36 11:38 Temperature 98.4 F Pulse Rate 71 71 Respiratory 18 Rate Blood Pressure 138/75 Blood Pressure 138/75 [Right] - Exam Abdomen: Present: normal appearance, normal bowel sounds - Labs Labs: Abnormal Labs 03/04/20 03/04/20 03/04/20 13:54 13:54 18:00 WBC RBC MCV 98 H MCH 33 H Lymph % (Auto) [place] % (Auto) [place] # (Auto) Seg Neutrophils % Seg Neutrophils # Sodium Potassium Carbon Dioxide Creatinine 0.5 L Magnesium Total Protein Albumin Ur Total Protein 24 Hr 444.00 H 03/05/20 03/05/20 03/07/20 08:35 18:31 16:13 WBC 14.8 H RBC MCV 98 H MCH 33 H Lymph % (Auto) 11.6 L [place] % (Auto) 7.4 H [place] # (Auto) 1.1 H Seg Neutrophils % 80.4 H Seg Neutrophils # 11.9 H Sodium Potassium Carbon Dioxide Creatinine Magnesium 6.20 H 5.70 H Total Protein Albumin Ur Total Protein 24 Hr 03/07/20 03/14/20 03/14/20 16:13 15:45 15:45 WBC RBC 3.48 L MCV MCH 33 H Lymph % (Auto) [place] % (Auto) [place] # (Auto) Seg Neutrophils % Seg Neutrophils # Sodium 135 L 134 L Potassium 3.5 L Carbon Dioxide 18 L Creatinine 0.5 L Magnesium Total Protein 5.9 L Albumin 3.6 L 3.1 L Ur Total Protein 24 Hr
[2020-03-17] MEDS: NIFEdipine XL 60 MG TAB PO SCH (09:51)
--- NOTE | 2020-03-17 09:57 | Progress Note ---
Assessment and Plan - Patient Problems (1) Pre-eclampsia added to pre-existing hypertension Current Visit: Yes Status: Acute Plan to address problem: Pt stable at 27.3 weeks with good BP control now with current Labetalol and Procardia xL dosing along with her once daily Xanax. PT with CHTN with superimposed preeclamspia per 24 hr urine. Steroid complete. Cont expectant care. Repeat preeclamptic labs today, leoncio since Potassium was 3.5 a few days ago. BPP tomorrow. Subjective - Subjective Date of service: 03/17/20 (27w 3 d) Principal diagnosis: at 27.3 weeks, chronic hypertension, superimposed PreE Patient reports: movement normal (No preeclamptic sxs. PT very comfortable in bed with no complaints. ), no new complaints, no loss of fluid, no vaginal bleeding, no contractions Objective - Vital Signs Vital Signs: Vital Signs - 12hr 03/16/20 03/16/20 03/17/20 21:56 21:57 00:00 Temperature 98.5 F Pulse Rate 65 65 Respiratory 16 Rate Blood Pressure 146/78 146/78 Blood Pressure [Left] 03/17/20 03/17/20 03/17/20 01:45 06:00 06:03 Temperature 98.3 F Pulse Rate 67 70 Respiratory 16 Rate Blood Pressure 114/56 135/68 Blood Pressure [Left] 03/17/20 03/17/20 08:42 09:49 Temperature 98.1 F Pulse Rate 71 Respiratory Rate Blood Pressure 136/69 Blood Pressure 139/69 [Left] - Exam FHR: auscultation normal FHR comments: 120-130s Uterine Contraction Pattern: Absent - Labs Labs: Abnormal Labs 03/04/20 03/04/20 03/04/20 13:54 13:54 18:00 WBC RBC MCV 98 H MCH 33 H Lymph % (Auto) [place] % (Auto) [place] # (Auto) Seg Neutrophils % Seg Neutrophils # Sodium Potassium Carbon Dioxide Creatinine 0.5 L Magnesium Total Protein Albumin Ur Total Protein 24 Hr 444.00 H 03/05/20 03/05/20 03/07/20 08:35 18:31 16:13 WBC 14.8 H RBC MCV 98 H MCH 33 H Lymph % (Auto) 11.6 L [place] % (Auto) 7.4 H [place] # (Auto) 1.1 H Seg Neutrophils % 80.4 H Seg Neutrophils # 11.9 H Sodium Potassium Carbon Dioxide Creatinine Magnesium 6.20 H 5.70 H Total Protein Albumin Ur Total Protein 24 Hr 03/07/20 03/14/20 03/14/20 16:13 15:45 15:45 WBC RBC 3.48 L MCV MCH 33 H Lymph % (Auto) [place] % (Auto) [place] # (Auto) Seg Neutrophils % Seg Neutrophils # Sodium 135 L 134 L Potassium 3.5 L Carbon Dioxide 18 L Creatinine 0.5 L Magnesium Total Protein 5.9 L Albumin 3.6 L 3.1 L Ur Total Protein 24 Hr
[2020-03-17] MEDS: ALPRAZolam 0.5 MG TAB PO SCH (10:48)
[2020-03-17 11:16] LABS: Basophils # (Auto) 0.1 K/mm3 (0.0-0.1); Basophils % (Auto) 0.5 % (0.0-1.8); Eosinophils # (Auto) 0.1 K/mm3 (0.0-0.4); Eosinophils % (Auto) 1.4 % (0.0-4.3); Hematocrit 35.4 % (30.3-42.9); Lymphocytes # (Auto) 1.3 K/mm3 (1.2-5.4); Lymphocytes % (Auto) 11.7 % (13.4-35.0); Mean Corpuscular HGB Conc 34 % (30-34); Mean Corpuscular Volume 98 fl (79-97); Monocytes # (Auto) 0.6 K/mm3 (0.0-0.8); Monocytes % (Auto) 5.2 % (0.0-7.3); Platelet Count 218 K/mm3 (140-440); Red Blood Count 3.63 M/mm3 (3.65-5.03); Red Cell Distribution Width 13.9 % (13.2-15.2)
[2020-03-17 11:34] LABS: Alanine Aminotransferase 10 units/L (7-56); Albumin 3.1 g/dL (3.9-5); Blood Urea Nitrogen 6 mg/dL (7-17); Calcium 9.3 mg/dL (8.4-10.2); Hemolysis Index 7
[2020-03-17 11:36] LABS: BUN/Creatinine Ratio 12
[2020-03-18] MEDS: PRENATAL VIT27-FE FUMARATE-FOLIC ACID VIT TAB PO SCH (06:25)
[2020-03-18] MEDS: NIFEdipine XL 60 MG TAB PO SCH (09:57)
[2020-03-18] MEDS: ALPRAZolam 0.5 MG TAB PO SCH (09:58)
--- NOTE | 2020-03-18 11:57 | Ultrasound Report ---
ULTRASOUND OBSTETRIC LIMITED INDICATION / CLINICAL INFORMATION: PPROM. TECHNIQUE: Transabdominal. COMPARISON: 03/11/2020 FINDINGS: Single intrauterine . HEART RATE (beats per minute): 136 BREATHING MOVEMENT = 0 GROSS BODY MOVEMENT = 2 TONE = 2 QUALITATIVE AMNIOTIC FLUID VOLUME = 2 TOTAL BIOPHYSICAL SCORE = 8/8 IMPRESSION: 1. Single live intrauterine with heart rate measuring 136 bpm. 2. Biophysical profile 6/8, without adequate breathing movements visualized on current study. C ontinued follow-up is recommend. Signer Name: John Valdez MD Signed: 03/18/2020 11:53 AM Workstation Name: [id number]
--- NOTE | 2020-03-18 13:47 | Progress Note ---
Assessment and Plan - Patient Problems (1) Pre-eclampsia added to pre-existing hypertension Current Visit: Yes Status: Acute Plan to address problem: PT is stable at 27w 4d with good BP control now with current Labetalol and Procardia xL dosing along with her once daily Xanax. PT with CHTN with superimposed preeclamspia per 24 hr urine. Steroid complete. Cont expectant care. Repeat preeclamptic labs yesterday were WNL. BPP was 6/8 (breathing) but could be a result of Xanax added this week. Will repeat BPP tomorrow AM. [facility] will also assess pt tomorrow to see if pt is a good candidate to be managed as an oupt. Her BP control has been much better since Xanax was added to her regimen and she also admits a h/o noncompliance to BP meds before admission but claims she will be compliant now knowing the severity of her condition. Subjective - Subjective Date of service: 03/18/20 (27w 4d) Principal diagnosis: at 27.3 weeks, chronic hypertension, superimposed PreE Patient reports: movement normal (No preeclamptic sxs. PT very comfortable in bed with no complaints. ), no new complaints, no loss of fluid, no vaginal bleeding, no contractions Objective - Vital Signs Vital Signs: Vital Signs - 12hr 03/18/20 03/18/20 03/18/20 05:55 05:56 05:57 Temperature 98.1 F Pulse Rate 65 65 Respiratory 18 Rate Blood Pressure 149/71 149/71 Blood Pressure [Left] 03/18/20 03/18/20 03/18/20 07:23 07:26 12:27 Temperature 98.8 F 98.4 F Pulse Rate 74 74 Respiratory 16 Rate Blood Pressure 131/65 Blood Pressure 131/65 [Left] 03/18/20 03/18/20 12:28 12:29 Temperature Pulse Rate 75 70 Respiratory Rate Blood Pressure 156/79 143/72 Blood Pressure [Left] - Exam FHR: auscultation normal FHR comments: 130s, good LTV - Labs Labs: Abnormal Labs 03/04/20 03/04/20 03/04/20 13:54 13:54 18:00 WBC RBC MCV 98 H MCH 33 H Lymph % (Auto) [place] % (Auto) [place] # (Auto) Seg Neutrophils % Seg Neutrophils # Sodium Potassium Carbon Dioxide BUN Creatinine 0.5 L Magnesium Total Protein Albumin Ur Total Protein 24 Hr 444.00 H 03/05/20 03/05/20 03/07/20 08:35 18:31 16:13 WBC 14.8 H RBC MCV 98 H MCH 33 H Lymph % (Auto) 11.6 L [place] % (Auto) 7.4 H [place] # (Auto) 1.1 H Seg Neutrophils % 80.4 H Seg Neutrophils # 11.9 H Sodium Potassium Carbon Dioxide BUN Creatinine Magnesium 6.20 H 5.70 H Total Protein Albumin Ur Total Protein 24 Hr 03/07/20 03/14/20 03/14/20 16:13 15:45 15:45 WBC RBC 3.48 L MCV MCH 33 H Lymph % (Auto) [place] % (Auto) [place] # (Auto) Seg Neutrophils % Seg Neutrophils # Sodium 135 L 134 L Potassium 3.5 L Carbon Dioxide 18 L BUN Creatinine 0.5 L Magnesium Total Protein 5.9 L Albumin 3.6 L 3.1 L Ur Total Protein 24 Hr 03/17/20 03/17/20 10:10 10:10 WBC RBC 3.63 L MCV 98 H MCH 33 H Lymph % (Auto) 11.7 L [place] % (Auto) [place] # (Auto) Seg Neutrophils % 81.2 H Seg Neutrophils # 8.7 H Sodium 135 L Potassium Carbon Dioxide BUN 6 L Creatinine 0.5 L Magnesium Total Protein Albumin 3.1 L Ur Total Protein 24 Hr
[2020-03-18] MEDS ORDERED: diphenhydrAMINE 50 MG/ML VIAL IV ONE (20:58)
--- NOTE | 2020-03-19 09:29 | Consultation ---
History of Present Illness Consult date: 03/19/20 History of present illness: HTN in The patient is doing well this morning and does not have any complaints She reports that before her BP was 160-180/90-100 She reports that she was NOT taking her meds and that she was NOT compliant and did NOT understand the ramifications of not taking meds Past History Past Medical History: heart disease, hypertension Past Surgical History: no surgical history - Obstetrical History : 8 Medications and Allergies Allergies Allergy/AdvReac Type Severity Reaction Status Date / Time latex Allergy Itching Verified 03/04/20 15:17 sulfur [From Sulfur-8] Allergy Itching Verified 03/04/20 15:17 Home Medications Medication Instructions Recorded Confirmed Last Taken Type Vitamin 1 tab PO DAILY 03/05/20 03/05/20 03/03/20 History amLODIPine 10 mg PO DAILY 03/05/20 03/05/20 03/04/20 History labetaloL 400 mg PO BID 03/05/20 03/05/20 03/03/20 History Active Meds: Active Medications Acetaminophen (Tylenol) 650 mg PO Q6H PRN PRN Reason: Pain, Mild (1-3) Last Admin: 03/09/20 20:48 Dose: 650 mg Documented by: Alprazolam (Xanax) 0.5 mg PO QDAY REPLACED BY [facility] Last Admin: 03/18/20 09:58 Dose: 0.5 mg Documented by: Hydralazine HCl (Apresoline) 10 mg IV Q60MIN PRN PRN Reason: Blood Pressure Last Admin: 03/10/20 20:43 Dose: 10 mg Documented by: Lactated Ringer's (Lactated Ringers) 1,000 mls @ 75 mls/hr IV DIRECT REPLACED BY [facility] Last Admin: 03/05/20 16:17 Dose: 75 mls/hr Documented by: Labetalol HCl (Labetalol) 20 mg IV Q60MIN PRN PRN Reason: Hypertension Labetalol HCl (Labetalol) 500 mg PO Q8HR REPLACED BY [facility] Last Admin: 03/19/20 07:37 Dose: 500 mg Documented by: Multivitamins/Iron/Calcium ( Vitamin) 1 each PO QDAY REPLACED BY [facility] Last Admin: 03/18/20 06:25 Dose: Not Given Documented by: Nifedipine (Procardia Xl) 60 mg PO QDAY REPLACED BY [facility] Last Admin: 03/18/20 09:57 Dose: 60 mg Documented by: Zolpidem Tartrate (Ambien) 5 mg PO QHS PRN PRN Reason: Sleep Last Admin: 03/04/20 23:53 Dose: 5 mg Documented by: Review of Systems Eyes: no blurred vision, no diplopia Cardiovascular: no palpitations, no lightheadedness, no shortness of breath Respiratory: no cough, no shortness of breath, no dyspnea on exertion Gastrointestinal: no abdominal pain (Good movement and no bleeding ) - Vital Signs Vital signs: Vital Signs Pulse BP 70 165/88 03/04/20 14:26 03/04/20 14:26 Temp Pulse Resp BP Pulse Ox 98.4 F 63 18 141/76 100 03/18/20 19:26 03/19/20 07:37 03/18/20 19:26 03/19/20 07:37 03/14/20 10:00 - Physical Exam Cardiovascular: Regular rate Lungs: Positive: Normal air movement Abdomen: Positive: normal appearance - Obstetrical FHR: category 1 Results Result Diagrams: 03/17/20 10:10 03/17/20 10:10 All other labs normal. Assessment and Plan IMPRESSIONS: 1. Chua IUP at 28 plus weeks 2. CHTN exacerbation and patient with non compliance - now her BP are much better on meds and she says that she understands that her BP has been much better on meds 3. AMA 4. S/P Steroid 5. S/P Mg 6. S/p Echo which is normal 7. Pysch Hx of bipolar, anxiety, PTSD Recs: 1. Cont present management - the patient could be a candidate for DC on Saturday if her BP are all stable as she is now controlled on meds 2. BPP Twice per week 3. PLease get pytarah referral for bipolar etc - she is taking 0.5 Xanax daily scheduled which we discussed risks but she should probably be on a maintainence med and followed by kiki 4. Delivery for previous mentioned criteria for Preeclampsia with severe features or compromise 5. Follow up Saturday for DC 6. PIH labs q week 7. US EFW q [address] EFW in grams on chart so we can determine exact EFW percentile or call US to get Percentile
[2020-03-19] MEDS: PRENATAL VIT27-FE FUMARATE-FOLIC ACID VIT TAB PO SCH (11:03)
[2020-03-19] MEDS: ALPRAZolam 0.5 MG TAB PO SCH (11:04)
[2020-03-19] MEDS: NIFEdipine XL 60 MG TAB PO SCH (11:04)
--- NOTE | 2020-03-19 14:57 | Progress Note ---
Assessment and Plan - Patient Problems (1) Pre-eclampsia added to pre-existing hypertension Current Visit: Yes Status: Acute Plan to address problem: PT stable at 27 weeks and 6 days with stable BP control with CHTN and superimposed preeeclampsia. [facility] saw pt today and advised to cont observation until at least saturday in the hospital. Subjective - Subjective Date of service: 03/19/20 Principal diagnosis: at 27.6 weeks, chronic hypertension, superimposed PreE Patient reports: movement normal (No preeclamptic sxs. PT very comfortable in bed with no complaints. ), no new complaints, no loss of fluid, no vaginal bleeding, no contractions Objective - Vital Signs Vital Signs: Vital Signs - 12hr 03/19/20 03/19/20 03/19/20 07:29 07:37 07:45 Temperature 98.4 F Pulse Rate 63 63 Respiratory 18 Rate Blood Pressure 141/76 141/76 03/19/20 03/19/20 11:04 12:05 Temperature 98.2 F Pulse Rate 70 Respiratory Rate Blood Pressure 156/79 - Exam FHR: auscultation normal - Labs Labs: Abnormal Labs 03/04/20 03/04/20 03/04/20 13:54 13:54 18:00 WBC RBC MCV 98 H MCH 33 H Lymph % (Auto) [place] % (Auto) [place] # (Auto) Seg Neutrophils % Seg Neutrophils # Sodium Potassium Carbon Dioxide BUN Creatinine 0.5 L Magnesium Total Protein Albumin Ur Total Protein 24 Hr 444.00 H 03/05/20 03/05/20 03/07/20 08:35 18:31 16:13 WBC 14.8 H RBC MCV 98 H MCH 33 H Lymph % (Auto) 11.6 L [place] % (Auto) 7.4 H [place] # (Auto) 1.1 H Seg Neutrophils % 80.4 H Seg Neutrophils # 11.9 H Sodium Potassium Carbon Dioxide BUN Creatinine Magnesium 6.20 H 5.70 H Total Protein Albumin Ur Total Protein 24 Hr 03/07/20 03/14/20 03/14/20 16:13 15:45 15:45 WBC RBC 3.48 L MCV MCH 33 H Lymph % (Auto) [place] % (Auto) [place] # (Auto) Seg Neutrophils % Seg Neutrophils # Sodium 135 L 134 L Potassium 3.5 L Carbon Dioxide 18 L BUN Creatinine 0.5 L Magnesium Total Protein 5.9 L Albumin 3.6 L 3.1 L Ur Total Protein 24 Hr 03/17/20 03/17/20 10:10 10:10 WBC RBC 3.63 L MCV 98 H MCH 33 H Lymph % (Auto) 11.7 L [place] % (Auto) [place] # (Auto) Seg Neutrophils % 81.2 H Seg Neutrophils # 8.7 H Sodium 135 L Potassium Carbon Dioxide BUN 6 L Creatinine 0.5 L Magnesium Total Protein Albumin 3.1 L Ur Total Protein 24 Hr
--- NOTE | 2020-03-19 17:30 | Ultrasound Report ---
Biophysical profile Ultrasound HISTORY: preeclampsia. TECHNIQUE: Grayscale and color imaging performed. COMPARISON: Biophysical profile ultrasound from yesterday FINDINGS: The fetus received a score of 2 out of 2 for breathing, movement, posture/tone, and MICHELLE. To jonatan score was 8 out of 8. Heart rate during the exam was 133 bpm. Incidental note made of placenta pr evia during the exam. IMPRESSION: 1. Normal biophysical profile. 2. Placenta previa. Signer Name: Cory Enciso MD Signed: 03/19/2020 5:25 PM Workstation Name: [id number]
[2020-03-19] MEDS ORDERED: diphenhydrAMINE 50 MG/ML VIAL IV PRN (19:54)
[2020-03-20] MEDS: PRENATAL VIT27-FE FUMARATE-FOLIC ACID VIT TAB PO SCH (10:03)
[2020-03-20] MEDS: ALPRAZolam 0.5 MG TAB PO SCH (10:03)
[2020-03-20] MEDS: NIFEdipine XL 60 MG TAB PO SCH (10:03)
[2020-03-20] MEDS: ACETAMINOPHEN 325 MG TAB PO PRN (13:00)
--- NOTE | 2020-03-20 13:23 | Progress Note ---
Assessment and Plan - Patient Problems (1) Pre-eclampsia added to pre-existing hypertension Current Visit: Yes Status: Acute Plan to address problem: PT is 28 weeks with CHTN and superimposed preeclampsia has had improved BP control since being compliant with meds her in hospital and having Xanax. No preeclamptic sxs. Steroid complete. BPP yesterday 11/27 but previa noted. See APA note and recommendations from yesterday. [facility] to reassess the pt t omorrow to see if pt can be managed as an outpt. (2) Placenta previa Current Visit: Yes Status: Acute Plan to address problem: stable and noted incidentally on U/S yesterday. No VB or ctxs. PT counseled. Will follow. VB precautions d/w pt. Subjective - Subjective Date of service: 03/20/20 (28.0 weeks. Late entry- pt seen earlier this morning.) Principal diagnosis: at 27.6 weeks, chronic hypertension, superimposed PreE Patient reports: movement normal (No preeclamptic sxs. PT very comfortable in bed with no complaints. Benadryl helped with itching from NST st raps.), no new complaints, no loss of fluid, no vaginal bleeding, no contractions Objective - Vital Signs Vital Signs: Vital Signs - 12hr 03/20/20 03/20/20 03/20/20 02:44 05:56 05:58 Temperature 98.3 F Pulse Rate 71 78 78 Respiratory Rate Blood Pressure 144/86 143/86 143/86 Blood Pressure 143/86 [Right] 03/20/20 03/20/20 03/20/20 08:28 12:51 12:52 Temperature 98.3 F 98.5 F Pulse Rate 67 80 80 Respiratory 16 18 Rate Blood Pressure 132/76 174/91 161/77 Blood Pressure 132/76 161/77 [Right] 03/20/20 03/20/20 13:00 13:08 Temperature Pulse Rate 83 Respiratory 18 Rate Blood Pressure 150/76 Blood Pressure [Right] - Exam FHR: auscultation normal FHR comments: 120s-130s, good LTV - Labs Labs: Abnormal Labs 03/04/20 03/04/20 03/04/20 13:54 13:54 18:00 WBC RBC MCV 98 H MCH 33 H Lymph % (Auto) [place] % (Auto) [place] # (Auto) Seg Neutrophils % Seg Neutrophils # Sodium Potassium Carbon Dioxide BUN Creatinine 0.5 L Magnesium Total Protein Albumin Ur Total Protein 24 Hr 444.00 H 03/05/20 03/05/20 03/07/20 08:35 18:31 16:13 WBC 14.8 H RBC MCV 98 H MCH 33 H Lymph % (Auto) 11.6 L [place] % (Auto) 7.4 H [place] # (Auto) 1.1 H Seg Neutrophils % 80.4 H Seg Neutrophils # 11.9 H Sodium Potassium Carbon Dioxide BUN Creatinine Magnesium 6.20 H 5.70 H Total Protein Albumin Ur Total Protein 24 Hr 03/07/20 03/14/20 03/14/20 16:13 15:45 15:45 WBC RBC 3.48 L MCV MCH 33 H Lymph % (Auto) [place] % (Auto) [place] # (Auto) Seg Neutrophils % Seg Neutrophils # Sodium 135 L 134 L Potassium 3.5 L Carbon Dioxide 18 L BUN Creatinine 0.5 L Magnesium Total Protein 5.9 L Albumin 3.6 L 3.1 L Ur Total Protein 24 Hr 03/17/20 03/17/20 10:10 10:10 WBC RBC 3.63 L MCV 98 H MCH 33 H Lymph % (Auto) 11.7 L [place] % (Auto) [place] # (Auto) Seg Neutrophils % 81.2 H Seg Neutrophils # 8.7 H Sodium 135 L Potassium Carbon Dioxide BUN 6 L Creatinine 0.5 L Magnesium Total Protein Albumin 3.1 L Ur Total Protein 24 Hr
[2020-03-21] MEDS: ALPRAZolam 0.5 MG TAB PO SCH (10:12)
[2020-03-21] MEDS: NIFEdipine XL 60 MG TAB PO SCH (10:12)
[2020-03-21 10:13] VITALS: BP 147/72
--- NOTE | 2020-03-21 13:15 | Progress Note ---
Assessment and Plan - Patient Problems (1) Pre-eclampsia added to pre-existing hypertension Current Visit: Yes Status: Acute Plan to address problem: Patient with know CHTN now with preeclampsia TP 444. BPs meds given late today. Possible elevated BPs associated with positioning and untreated anxiety/PTSD. Will monitor BPs closely. Trends labs. S/p BMZ x 2 for lung maturity. S/p magnesium sulfate for neuroprotection. ?reported diagnostic heart failure however normal EF. Patient desires to go home if BPs improved. Will consider if evening BPs improved. --Monitor for s/sx for severe preE --Continue Labetolol 500mg q8hrs, procardia 60mg XL qday, IV antihypertensives prn --Daily NST --Weekly BPPs starting at 28 weeks --US for growth; serial growth US every 3-4 weeks --Anticipate discharge home today with close follow up at [facility] and [facility] weekly (2) Anxiety Current Visit: Yes Status: Acute Plan to address problem: --Hx of PTSD and anxiety previously on multiple meds including Depakote, lithium, benzos. Possible component of intermittently elevated BPs --Ambien 5mg qHS prn sleep --Continue Xanax 0.5 mg day tarah for anxiety Subjective - Subjective Principal diagnosis: at 27.6 weeks, chronic hypertension, superimposed PreE Interval history: Patient doing well. Understanding plan of care. Denies PIH symptoms including RUQ pain, QUINTANILLA, scotoma. BPs improved from yesterday. +FM. No labor complaints. BPs overall improved on current regimen. After discussion with [facility] Staff Yanci, will attempt outpatient management. Denies adverse symptoms. Feels well. Patient reports: movement normal (No preeclamptic sxs. PT very comfortable in bed with no complaints. Benadryl helped with itching from NST straps.), no new complaints, no loss of fluid, no vaginal bleeding, no contractions Objective - Vital Signs Vital Signs: Vital Signs - 12hr 03/21/20 03/21/20 03/21/20 02:30 04:30 06:24 Temperature 98.1 F Pulse Rate 74 84 70 Respiratory 16 Rate Blood Pressure 135/65 Blood Pressure [Left] Blood Pressure 124/88 132/68 [Right] O2 Sat by Pulse 99 Oximetry 03/21/20 03/21/20 03/21/20 06:25 10:12 10:13 Temperature 98.8 F Pulse Rate 70 80 Respiratory 18 Rate Blood Pressure 135/65 147/72 Blood Pressure 147/72 [Left] Blood Pressure [Right] O2 Sat by Pulse Oximetry - Exam Abdomen: Present: normal appearance, normal bowel sounds, other (gravid) FHR: category 1 Uterine Contraction Monitor Mode: External Uterine Contraction Pattern: Absent - Labs Labs: Abnormal Labs 03/04/20 03/04/20 03/04/20 13:54 13:54 18:00 WBC RBC MCV 98 H MCH 33 H Lymph % (Auto) [place] % (Auto) [place] # (Auto) Seg Neutrophils % Seg Neutrophils # Sodium Potassium Carbon Dioxide BUN Creatinine 0.5 L Magnesium Total Protein Albumin Ur Total Protein 24 Hr 444.00 H 03/05/20 03/05/20 03/07/20 08:35 18:31 16:13 WBC 14.8 H RBC MCV 98 H MCH 33 H Lymph % (Auto) 11.6 L [place] % (Auto) 7.4 H [place] # (Auto) 1.1 H Seg Neutrophils % 80.4 H Seg Neutrophils # 11.9 H Sodium Potassium Carbon Dioxide BUN Creatinine Magnesium 6.20 H 5.70 H Total Protein Albumin Ur Total Protein 24 Hr 03/07/20 03/14/20 03/14/20 16:13 15:45 15:45 WBC RBC 3.48 L MCV MCH 33 H Lymph % (Auto) [place] % (Auto) [place] # (Auto) Seg Neutrophils % Seg Neutrophils # Sodium 135 L 134 L Potassium 3.5 L Carbon Dioxide 18 L BUN Creatinine 0.5 L Magnesium Total Protein 5.9 L Albumin 3.6 L 3.1 L Ur Total Protein 24 Hr 03/17/20 03/17/20 10:10 10:10 WBC RBC 3.63 L MCV 98 H MCH 33 H Lymph % (Auto) 11.7 L [place] % (Auto) [place] # (Auto) Seg Neutrophils % 81.2 H Seg Neutrophils # 8.7 H Sodium 135 L Potassium Carbon Dioxide BUN 6 L Creatinine 0.5 L Magnesium Total Protein Albumin 3.1 L Ur Total Protein 24 Hr
--- NOTE | 2020-03-21 13:23 | Discharge Summary ---
Providers - Providers Date of Admission: 03/04/20 16:18 Date of discharge: 03/21/20 Attending physician: SARAN DILLON MD 03/06/20 10:33 Consult to Physician [CONS] Routine Comment: Consulting Provider: LAURA QUIÑONEZ Physician Instructions: Reason For Exam: severe preeclampsia superimposed on HTN, 26 wks 03/06/20 11:00 Consult to Case Management [CONS] Routine Services Needed at Discharge: Obstetrics Gynecology Physician Notified:: Joanne Phone number called:: [phone] Was contact made?: Yes If yes, spoke with:: Christine Time called:: 09:33 Additional Physician Instructions: Multiple psychosocial stressors; discuss resources 03/06/20 16:38 Consult to Physician [CONS] Routine Comment: Consulting Provider: NOBLE CANTU Physician Instructions: Reason For Exam: Chronic diastolic heart failure Primary care physician: PROGRAM CLERK Hospitalization Reason for admission: other (HTN with superimposed preeclampsia) Hospital course: 39-year-old -0-2-5 admitted from 25w5 to and discharged at at 28w0d c/b uncontrolled, non-complaint hypertension (previously on amlodipine 10mg qday and labetolol 400mg BID) with ?chronic diastolic heart failure, AMA, tobacco use, HSV-2, hx UTI admitted for management of BPs. status wnl. No concern for well being with normal imaging and external monitoring. No evidence of labor. During admission, patient found to have mild preeclampsia by TP of 444. Cardiology consulted with negative workup of heart failure. BPs meds changed from amlodipine to procardia with improvement of BPs. HTN meds titrated to final dose of labetolol 500mg Q8HRS and Procardia 60mg XL. Xanax 0.5mg qday was added given patient reports of hx of PTSD, anxiety, depression with 2/2 improvement of BPs. Patient was discharged 03/21/2020 with normal sono/BPP/MICHELLE on 03/19/2020. Patient to have close follow up as outpatient at [facility] and [facility]. Condition at discharge: Fair Disposition: [id number] TO HOME OR SELFCARE - Discharge Diagnoses (1) Pre-eclampsia added to pre-existing hypertension Status: Acute Comment: Discharged home on labetolol 500mg QID and Procardia 60mg XL qday (2) Anxiety Status: Acute Comment: Discharged home on Xanax 0.5mg qday Plan - Discharge Medications Prescriptions: labetaloL [Labetalol 200mg TAB] 500 mg PO Q8HR #90 tablet NIFEdipine XL [Procardia Xl] 60 mg PO QDAY #30 tablet ALPRAZolam [Xanax TAB] 0.5 mg PO QDAY #30 tablet - Provider Discharge Summary Activity: routine Diet: routine Instructions: routine Additional instructions: [] Smoking cessation referral if applicable(refer to patient education folder for contact #) [] Refer to [facility]'s [facility] Booklet Call your doctor immediately for: * Fever > 100.5 * Heavy vaginal bleeding ( >1 pad per hour) * Severe persistent headache * Shortness of breath * Reddened, hot, painful area to leg or breast * Drainage or odor from incision. * Keep incision clean and dry at all times and follow doctor's instructions regarding bathing/showering - Follow up plan Follow up: PRIMARY CARE, [Primary Care Provider] - 7 Days
== END 2020-03-21 15:20 | disposition home or self-care (01) | DRG 781 ==
LOC: APU 13:35 → TRG 13:35 → LD 16:18
PROVIDERS: ADMIT Obstetrics & Gynecology; ATTEND Obstetrics & Gynecology
DX: O11.2 Pre-existing hypertension with pre-eclampsia, second trimester (principal); F41.9 Anxiety disorder, unspecified; O10.113 Pre-existing hypertensive heart disease complicating pregnancy, third trimester; I50.32 Chronic diastolic (congestive) heart failure; F31.9 Bipolar disorder, unspecified; F43.10 Post-traumatic stress disorder, unspecified; O10.112 Pre-existing hypertensive heart disease complicating pregnancy, second trimester; O98.512 Other viral diseases complicating pregnancy, second trimester; B00.9 Herpesviral infection, unspecified; O99.332 Smoking (tobacco) complicating pregnancy, second trimester; F17.200 Nicotine dependence, unspecified, uncomplicated; Z3A.28 28 weeks gestation of pregnancy; O09.522 Supervision of elderly multigravida, second trimester; O99.342 Other mental disorders complicating pregnancy, second trimester; Z20.828 Contact with and (suspected) exposure to other viral communicable diseases; I11.0 Hypertensive heart disease with heart failure
CPT/HCPCS: 36415; 76815; 76816; 76819; 80053; 80307; 81001; 82565; 83735; 84156; 84450; 84460; 84550; 85025; 85027; 86850; 86900; 86901; 93005; G0378; J0360; J0702; J1200; J3475; J7120; U0003